=== PATIENT | female | born 1955 | race American Indian/Alaskan Native ===

== ENCOUNTER 2018-02-03 22:10 | Inpatient (IN) | payer MEDICAID, OTHER ==
[2018-02-03] MEDS ORDERED: NACL 0.9% 500 ML 500 ML IV ONE (22:17)
[2018-02-03] MEDS ORDERED: ZOFRAN IV ONE (22:17)
[2018-02-03] MEDS ORDERED: PEPCID IV ONE (22:17)
--- NOTE | 2018-02-03 22:23 | Emergency Department Report ---
ED Chest Pain HPI - General Stated Complaint: POSS STEMI Time Seen by Provider: 02/03/18 22:16 Source: patient, EMS Mode of arrival: Stretcher Limitations: No Limitations - History of Present Illness Initial Comments: 62-year-old female with a past medical history scleroderma,dvt, and CHF presents with complaints of chest pain, abdominal pain, nausea, vomiting, and diarrhea. Patient has had nausea, vomiting and diarrhea since yesterday which has continued today. Patient has mid abdominal pain just above the umbilicus that is constant and worse with palpation. Unable to characterize pain. She denies hematemesis, melena, hematochezia, or fever. No previous abdominal surgeries reported. Patient developed left-sided chest pain today 2:30 PM just prior to getting on a plane in route to [place]. She has been in [place] for the past 2 weeks. Her left-sided chest pain continue on return flight but progressively worsened. She is unable to characterize the pain states "It just hurts". Pain is reproducible with palpation. She denies shortness of breath. No complaints of calf tenderness. Positive cough without reported fever. No PMD , just relocated here from [place]. Patient received aspirin prior to arrival Patient denies a history of irregular heartbeat/afib with but take digoxin for "her heart". Patient states that she was started on ELiquis 2 years ago for DVT in her leg. She denies IVC filter placement - Related Data Previous Rx's Medication Instructions Recorded Last Taken Type Doxycycline [Vibramycin CAP] 100 mg PO BID #20 capsule 05/01/14 Unknown Rx Hydrocodone/Chlorphen P-Stirex 1 each PO Q12HR #30 cap.er.12h 05/01/14 Unknown Rx [Tussicaps 10 mg-8 mg Capsule] ALBUTEROL Inhaler [ProAir HFA 2 puff IH QID PRN #1 inhalation 06/01/15 Unknown Rx Inhaler] Acetaminophen/Codeine [Tylenol #3] 1 tab PO Q6H PRN #20 tab 06/01/15 Unknown Rx Cyclobenzaprine HCl [Flexeril 5 MG 5 mg PO Q8HR #20 tablet 06/01/15 Unknown Rx TAB] guaiFENesin [Robitussin] 10 ml PO Q4HR #1 bottle 06/01/15 Unknown Rx Allergies Allergy/AdvReac Type Severity Reaction Status Date / Time No Known Allergies Allergy Verified 06/01/15 17:48 Heart Score - HEART Score History: Slightly suspicious EKG: Non-specific Age: 45-65 Risk factors: 1-2 risk factors Troponin: 1-3x normal limit HEART Score: 4 ED Review of Systems ROS: Stated complaint: POSS STEMI Other details as noted in HPI Comment: All other systems reviewed and negative ED Past Medical Hx - Past Medical History Hx Asthma: Yes Additional medical history: dvt - Social History Smoking Status: Never Smoker Substance Use Type: None - Medications Home Medications: Home Medications Medication Instructions Recorded Confirmed Last Taken Type Doxycycline [Vibramycin CAP] 100 mg PO BID #20 capsule 05/01/14 Unknown Rx Hydrocodone/Chlorphen P-Stirex 1 each PO Q12HR #30 cap.er.12h 05/01/14 Unknown Rx [Tussicaps 10 mg-8 mg Capsule] ALBUTEROL Inhaler [ProAir HFA 2 puff IH QID PRN #1 inhalation 06/01/15 Unknown Rx Inhaler] Acetaminophen/Codeine [Tylenol #3] 1 tab PO Q6H PRN #20 tab 06/01/15 Unknown Rx Cyclobenzaprine HCl [Flexeril 5 MG 5 mg PO Q8HR #20 tablet 06/01/15 Unknown Rx TAB] guaiFENesin [Robitussin] 10 ml PO Q4HR #1 bottle 06/01/15 Unknown Rx ED Physical Exam - Other Other exam information: General: No limitations, patient is alert in no acute distress Head exam: Atraumatic, normocephalic Eyes exam: Normal appearance ENT: Moist mucous membrane, normal oropharynx Neck exam: Normal inspection, full range of motion, no meningismus nontender Respiratory exam: Clear to auscultation bilateral, no wheezes, rales, crackles Cardiovascular: Irregular rhythm, rate 98 on monitor/ekg. Reproducible left chest wall tenderness. Abdomen: Soft, nondistended, tenderness above umbilicus, with normal bowel sounds, no rebound, or guarding Extremity: Full range of motion normal inspection no deformity Back: Normal Inspection, full range of motion, no tenderness Neurologic: Alert, oriented x3, cranial nerves intact, no motor or sensory deficit Psychiatric: normal affect, normal mood Skin: thick skin secondary to scleroderma ED Course Vital Signs 02/03/18 02/03/18 02/03/18 22:08 22:16 22:30 Temperature Pulse Rate 115 H 103 H 103 H Respiratory 14 18 15 Rate Blood Pressure 107/68 Blood Pressure [Left] O2 Sat by Pulse 92 97 97 Oximetry 02/03/18 02/03/18 02/03/18 22:34 22:45 23:01 Temperature 98.6 F Pulse Rate 99 H 91 H 113 H Respiratory 19 13 Rate Blood Pressure 102/58 105/54 Blood Pressure [Left] O2 Sat by Pulse 92 Oximetry 02/03/18 02/03/18 02/03/18 23:07 23:11 23:15 Temperature 98.2 F Pulse Rate 89 102 H 104 H Respiratory 23 18 12 Rate Blood Pressure 105/54 100/45 Blood Pressure 105/54 [Left] O2 Sat by Pulse 99 98 Oximetry 02/03/18 02/03/18 02/04/18 23:30 23:45 00:00 Temperature Pulse Rate 102 H 98 H 96 H Respiratory 22 16 21 Rate Blood Pressure 106/71 116/59 99/58 Blood Pressure [Left] O2 Sat by Pulse 100 97 99 Oximetry 02/04/18 02/04/18 02/04/18 00:15 00:39 00:45 Temperature Pulse Rate 92 H Respiratory 13 Rate Blood Pressure 99/58 99/58 85/26 Blood Pressure [Left] O2 Sat by Pulse 91 97 Oximetry 02/04/18 02/04/18 02/04/18 01:01 01:15 01:31 Temperature Pulse Rate Respiratory Rate Blood Pressure 102/61 102/61 102/61 Blood Pressure [Left] O2 Sat by Pulse 94 91 89 Oximetry 02/04/18 02/04/18 02/04/18 01:45 02:01 02:15 Temperature Pulse Rate Respiratory Rate Blood Pressure 102/61 102/61 102/61 Blood Pressure [Left] O2 Sat by Pulse 91 89 85 Oximetry 02/04/18 02/04/18 02/04/18 02:31 02:45 03:00 Temperature Pulse Rate Respiratory Rate Blood Pressure 102/61 96/58 90/64 Blood Pressure [Left] O2 Sat by Pulse 86 94 95 Oximetry 02/04/18 03:15 Temperature Pulse Rate Respiratory Rate Blood Pressure 90/64 Blood Pressure [Left] O2 Sat by Pulse 99 Oximetry - Consultations Consultation #1: 02/04/18 04:23 case d/w Dr Campoverde/cards, will consult DENITA score - Denita Score Age > 65: (0) No Aspirin use within the Past 7 Days: (0) No 3 or more CAD Risk Factors: (1) Yes 2 or more Angina events in past 24 hrs: (1) Yes Known CAD with more than 50% Stenosis: (0) No Elevated Cardiac Markers: (1) Yes ST Deviation Greater than 0.5mm: (0) No DENITA Score: 3 ED Medical Decision Making - Lab Data Result diagrams: 02/03/18 22:22 02/03/18 22:22 Lab Results 02/03/18 02/03/18 02/03/18 Range/Units 22:22 22:22 22:22 WBC 9.6 (4.5-11.0) K/mm3 RBC 4.08 (3.65-5.03) M/mm3 Hgb 10.5 (10.1-14.3) gm/dl Hct 32.9 (30.3-42.9) % MCV 81 (79-97) fl MCH 26 L (28-32) pg MCHC 32 (30-34) % RDW 17.8 H (13.2-15.2) % Plt Count 287 (140-440) K/mm3 Lymph % (Auto) 18.2 (13.4-35.0) % [place] % (Auto) 11.4 H (0.0-7.3) % Eos % (Auto) 1.2 (0.0-4.3) % Baso % (Auto) 0.3 (0.0-1.8) % Lymph # 1.7 (1.2-5.4) K/mm3 [place] # 1.1 H (0.0-0.8) K/mm3 Eos # 0.1 (0.0-0.4) K/mm3 Baso # 0.0 (0.0-0.1) K/mm3 Seg Neutrophils % 68.9 (40.0-70.0) % Seg Neutrophils # 6.6 (1.8-7.7) K/mm3 PT 17.3 H (12.2-14.9) Sec. INR 1.34 H (0.87-1.13) APTT 38.8 H (24.2-36.6) Sec. D-Dimer 1205.05 H (0-234) ng/mlDDU Sodium 137 (137-145) mmol/L Potassium 3.1 L (3.6-5.0) mmol/L Chloride 90.8 L (98-107) mmol/L Carbon Dioxide 32 H (22-30) mmol/L Anion Gap 17 mmol/L BUN 8 (7-17) mg/dL Creatinine 0.4 L (0.7-1.2) mg/dL Estimated GFR > 60 ml/min BUN/Creatinine Ratio 20 % Glucose 111 H (65-100) mg/dL Calcium 9.1 (8.4-10.2) mg/dL Magnesium 1.20 L (1.7-2.3) mg/dL Total Bilirubin 0.60 (0.1-1.2) mg/dL AST 26 (5-40) units/L ALT 10 (7-56) units/L Alkaline Phosphatase 56 (35-129) units/L Total Creatine Kinase (30-135) units/L CK-MB (CK-2) (0.0-4.0) ng/mL CK-MB (CK-2) Rel Index (0-4) Troponin T (0.00-0.029) ng/mL NT-Pro-B Natriuret Pep 1420 H (0-900) pg/mL Total Protein 5.9 L (6.3-8.2) g/dL Albumin 3.8 L (3.9-5) g/dL Albumin/Globulin Ratio 1.8 % Triglycerides (2-149) mg/dL Cholesterol (50-199) mg/dL LDL Cholesterol Direct (50-130) mg/dL HDL Cholesterol (40-59) mg/dL Cholesterol/HDL Ratio % Lipase 64 H (13-60) units/L TSH (0.270-4.200) mlU/mL Free T4 (0.76-1.46) ng/dL Digoxin (0.9-2.0) ng/mL 02/03/18 02/03/18 02/03/18 Range/Units 22:22 22:22 22:38 WBC (4.5-11.0) K/mm3 RBC (3.65-5.03) M/mm3 Hgb (10.1-14.3) gm/dl Hct (30.3-42.9) % MCV (79-97) fl MCH (28-32) pg MCHC (30-34) % RDW (13.2-15.2) % Plt Count (140-440) K/mm3 Lymph % (Auto) (13.4-35.0) % [place] % (Auto) (0.0-7.3) % Eos % (Auto) (0.0-4.3) % Baso % (Auto) (0.0-1.8) % Lymph # (1.2-5.4) K/mm3 [place] # (0.0-0.8) K/mm3 Eos # (0.0-0.4) K/mm3 Baso # (0.0-0.1) K/mm3 Seg Neutrophils % (40.0-70.0) % Seg Neutrophils # (1.8-7.7) K/mm3 PT (12.2-14.9) Sec. INR (0.87-1.13) APTT (24.2-36.6) Sec. D-Dimer (0-234) ng/mlDDU Sodium (137-145) mmol/L Potassium (3.6-5.0) mmol/L Chloride (98-107) mmol/L Carbon Dioxide (22-30) mmol/L Anion Gap mmol/L BUN (7-17) mg/dL Creatinine (0.7-1.2) mg/dL Estimated GFR ml/min BUN/Creatinine Ratio % Glucose (65-100) mg/dL Calcium (8.4-10.2) mg/dL Magnesium (1.7-2.3) mg/dL Total Bilirubin (0.1-1.2) mg/dL AST (5-40) units/L ALT (7-56) units/L Alkaline Phosphatase (35-129) units/L Total Creatine Kinase 242 H (30-135) units/L CK-MB (CK-2) 4.5 H (0.0-4.0) ng/mL CK-MB (CK-2) Rel Index 1.8 (0-4) Troponin T 0.055 H (0.00-0.029) ng/mL NT-Pro-B Natriuret Pep (0-900) pg/mL Total Protein (6.3-8.2) g/dL Albumin (3.9-5) g/dL Albumin/Globulin Ratio % Triglycerides 99 (2-149) mg/dL Cholesterol 110 (50-199) mg/dL LDL Cholesterol Direct 56 (50-130) mg/dL HDL Cholesterol 44 (40-59) mg/dL Cholesterol/HDL Ratio 2.50 % Lipase (13-60) units/L TSH 3.950 (0.270-4.200) mlU/mL Free T4 1.28 (0.76-1.46) ng/dL Digoxin 0.5 L (0.9-2.0) ng/mL 02/04/18 Range/Units 01:00 WBC (4.5-11.0) K/mm3 RBC (3.65-5.03) M/mm3 Hgb (10.1-14.3) gm/dl Hct (30.3-42.9) % MCV (79-97) fl MCH (28-32) pg MCHC (30-34) % RDW (13.2-15.2) % Plt Count (140-440) K/mm3 Lymph % (Auto) (13.4-35.0) % [place] % (Auto) (0.0-7.3) % Eos % (Auto) (0.0-4.3) % Baso % (Auto) (0.0-1.8) % Lymph # (1.2-5.4) K/mm3 [place] # (0.0-0.8) K/mm3 Eos # (0.0-0.4) K/mm3 Baso # (0.0-0.1) K/mm3 Seg Neutrophils % (40.0-70.0) % Seg Neutrophils # (1.8-7.7) K/mm3 PT (12.2-14.9) Sec. INR (0.87-1.13) APTT (24.2-36.6) Sec. D-Dimer (0-234) ng/mlDDU Sodium (137-145) mmol/L Potassium (3.6-5.0) mmol/L Chloride (98-107) mmol/L Carbon Dioxide (22-30) mmol/L Anion Gap mmol/L BUN (7-17) mg/dL Creatinine (0.7-1.2) mg/dL Estimated GFR ml/min BUN/Creatinine Ratio % Glucose (65-100) mg/dL Calcium (8.4-10.2) mg/dL Magnesium (1.7-2.3) mg/dL Total Bilirubin (0.1-1.2) mg/dL AST (5-40) units/L ALT (7-56) units/L Alkaline Phosphatase (35-129) units/L Total Creatine Kinase (30-135) units/L CK-MB (CK-2) (0.0-4.0) ng/mL CK-MB (CK-2) Rel Index (0-4) Troponin T 0.066 H (0.00-0.029) ng/mL NT-Pro-B Natriuret Pep (0-900) pg/mL Total Protein (6.3-8.2) g/dL Albumin (3.9-5) g/dL Albumin/Globulin Ratio % Triglycerides (2-149) mg/dL Cholesterol (50-199) mg/dL LDL Cholesterol Direct (50-130) mg/dL HDL Cholesterol (40-59) mg/dL Cholesterol/HDL Ratio % Lipase (13-60) units/L TSH (0.270-4.200) mlU/mL Free T4 (0.76-1.46) ng/dL Digoxin (0.9-2.0) ng/mL - EKG Data -: EKG Interpreted by Me (afib, RBBB) EKG shows normal: axis (qrs 114), QRS complexes (161), ST-T waves (no stemi) Rate: normal (98) - EKG Data When compared to previous EKG there are: previous EKG unavailable - Radiology Data Radiology results: report reviewed read by radiology CXR: IMPRESSION: Moderate cardiomegaly with pulmonary venous congestion. Pericardial effusion cannot be excluded. ct angio chest (verbal from radiologist due to technical difficulties receiving report) no Pulmonary embolism significant cardiomegaly with medium pericardial effusion (16mm) Vascular congestion and atelectasis at the bases. No evidence for CT abdomen and pelvis IV contrast: IMPRESSION: There is mild dilatation of multiple loops of small bowel in a mild ileus is identified. Moderate gas and fecal debris throughout the colon consistent with constipation. Moderate diverticulosis of the distal colon. There is a calcified fibroid in the uterus. Significant cardiomegaly with mild pericardial effusion. Moderate atelectasis in bilateral lower lungs. 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 ED Disposition Clinical Impression: New onset a-fib, Chest pain, Elevated troponin, Scleroderma, Constipation, Cardiomegaly, Pericardial effusion, Ileus, Hypokalemia, Hypomagnesemia, Anticoagulant long-term use, Hx of deep venous thrombosis Disposition: OP ADMIT IP TO THIS HOSP Is pt being admited?: Yes Does the pt Need Aspirin: Yes Condition: Stable Instructions: Chest Pain (ED) Time of Disposition: 03:33 (Dr Cyr/hosp)
[2018-02-03 22:40] LABS: Basophils % (Auto) 0.3 % (0.0-1.8); Eosinophils # (Auto) 0.1 K/mm3 (0.0-0.4); Eosinophils % (Auto) 1.2 % (0.0-4.3); Hematocrit 32.9 % (30.3-42.9); Hemoglobin 10.5 gm/dl (10.1-14.3); Lymphocytes # (Auto) 1.7 K/mm3 (1.2-5.4); Lymphocytes % (Auto) 18.2 % (13.4-35.0); Mean Corpuscular HGB Conc 32 % (30-34); Mean Corpuscular Volume 81 fl (79-97); Monocytes # (Auto) 1.1 K/mm3 (0.0-0.8); Monocytes % (Auto) 11.4 % (0.0-7.3); Platelet Count 287 K/mm3 (140-440); Red Blood Count 4.08 M/mm3 (3.65-5.03); Red Cell Distribution Width 17.8 % (13.2-15.2)
[2018-02-03 22:47] LABS: Mean Corpuscular Hemoglobin 26 pg (28-32)
[2018-02-03 22:53] LABS: INR 1.34 (0.87-1.13)
[2018-02-03 22:54] LABS: Partial Thromboplastin Time 38.8 Sec. (24.2-36.6)
[2018-02-03 22:55] LABS: Alanine Aminotransferase 10 units/L (7-56); Albumin 3.8 g/dL (3.9-5); BUN/Creatinine Ratio 20; Blood Urea Nitrogen 8 mg/dL (7-17); Calcium 9.1 mg/dL (8.4-10.2); Hemolysis Index 24; Lipase 64 units/L (13-60)
[2018-02-03 23:00] LABS: Free T4 (Free Thyroxine) 1.28 ng/dL (0.76-1.46)
[2018-02-03 23:01] LABS: Creatine Kinase MB 4.5 ng/mL (0.0-4.0)
[2018-02-03] MEDS ORDERED: POTASSIUM CHLORIDE PO ONE (23:12)
[2018-02-03] MEDS ORDERED: MAGNESIUM SULFATE 2GM/50ML 2 GM/50 ML BAG IV ONE (23:12)
[2018-02-03 23:24] LABS: Chol/HDL Ratio 2.5 %
--- NOTE | 2018-02-03 23:36 | XRay Report ---
FINAL REPORT PROCEDURE: XR CHEST 1V AP TECHNIQUE: Chest radiograph anteroposterior view. CPT 25199 HISTORY: cp COMPARISON: No prior studies are available for comparison. FINDINGS: Heart: Moderate cardiomegaly is noted.. Mediastinum/Vessels: Pulmonary venous congestion is identified. Lungs/Pleural space: Normal. Bony thorax: No acute osseous abnormality. Life support devices: None. IMPRESSION: Moderate cardiomegaly with pulmonary venous congestion. Pericardial effusion cannot be excluded.
--- NOTE | 2018-02-04 01:44 | Cat Scan Report ---
FINAL REPORT PROCEDURE: CT ANGIO CHEST TECHNIQUE: Computerized tomographic angiography of the chest was performed after the IV injection of iodinated nonionic contrast including image processing. The image data was postprocessed using 2-dimensional multiplanar reformatted (MPR) and 3-dimensional (MIP and/or volume rendered) techniques. HISTORY: elevated ddimer, chest pain COMPARISON: No prior studies are available for comparison. FINDINGS: Heart and pericardium: Normal heart lies is significantly enlarged. There is moderate pericardial effusion.. Thoracic aorta: Normal. Pulmonary vasculature: There is no evidence of pulmonary arterial emboli. Lymph nodes: No enlarged thoracic lymph nodes. Lungs: There is vascular congestion with slight atelectasis bilateral lower lungs. No effusion or pneumothorax. The central airway is patent. Pleural space: No effusion, thickening, or pneumothorax. Musculoskeletal structures: No significant abnormality. Upper abdominal structures: No significant abnormality. IMPRESSION: There is no evidence of pulmonary arterial emboli. Vascular congestion with slight atelectasis bilateral lower lungs. No effusion. Cardiomegaly with moderate pericardial effusion.
--- NOTE | 2018-02-04 01:44 | Cat Scan Report ---
FINAL REPORT PROCEDURE: CT ABDOMEN PELVIS W CON TECHNIQUE: Computerized axial tomography of the abdomen and pelvis was performed after the IV injection of iodinated nonionic contrast. HISTORY: abd pain, n,v,d COMPARISON: No prior studies are available for comparison. FINDINGS: Visualized lower thorax: Significant cardiomegaly with mild pericardial effusion. Moderate atelectasis.. Liver: Normal size and attenuation. Spleen: Normal size and attenuation. Gallbladder and biliary system: Normal. Pancreas: Normal. Adrenals: Normal. Kidneys: Normal. GI tract: No obstruction, Mild dilatation of multiple loops of small bowel a mild ileus is identified. Moderate gas and fecal debris in the colon consistent with constipation.l. Lymph nodes and mesentery: Normal. Vasculature: Normal. Bladder: Normal. Reproductive organs: Calcified fibriod in the uterus. No adenexal masses. Peritoneum: No free fluid. Musculoskeletal structures: No significant abnormality. Other: None. IMPRESSION: There is mild dilatation of multiple loops of small bowel in a mild ileus is identified. Moderate gas and fecal debris throughout the colon consistent with constipation. Moderate diverticulosis of the distal colon. There is a calcified fibroid in the uterus. Significant cardiomegaly with mild pericardial effusion. Moderate atelectasis in bilateral lower lungs.
[2018-02-04] MEDS ORDERED: PROAIR IH PRN (04:08)
[2018-02-04] MEDS ORDERED: HEPARIN 10,000 UNITS/10 ML IV ONE (04:10)
[2018-02-04] MEDS ORDERED: BREVIBLOC DRIP 2.5GM/250ML 2.5 GM/250 ML BAG IV ONE (04:11)
[2018-02-04] MEDS ORDERED: MORPHINE IV PRN (04:13)
[2018-02-04] MEDS ORDERED: NITROSTAT SL PRN (04:15)
[2018-02-04] MEDS ORDERED: ZOFRAN IV PRN (04:16)
[2018-02-04] MEDS: NITRO-BID 2% TP SCH ×4 (04:40→17:27)
[2018-02-04] MEDS ORDERED: HEPARIN 10,000 UNITS/10 ML ONE (04:52)
[2018-02-04] MEDS ORDERED: HEPARIN/ 0.45% NACL-25,000 UNIT/500 ML 25,000 UNIT/500 ML BAG IV SCH (05:00)
[2018-02-04 05:02] LABS: Hematocrit 30.8 % (30.3-42.9); Hemoglobin 9.7 gm/dl (10.1-14.3)
[2018-02-04 05:10] LABS: INR 1.32 (0.87-1.13)
[2018-02-04 05:11] LABS: Partial Thromboplastin Time 42.2 Sec. (24.2-36.6)
[2018-02-04 05:17] LABS: Creatine Kinase MB 3.7 ng/mL (0.0-4.0)
--- NOTE | 2018-02-04 09:31 | Progress Note ---
Assessment and Plan Assessment and plan: --Non-ST elevation OK; Continue current cardiac medications, serial cardiac enzymes Echocardiogram, cardiology evaluation Aspirin, beta blockers , RAYMON inhibitor,Morphine, statin and Nitrate Patient is on heparin drip --Elevated D dimers; CTA negative for PE CTA negative for PE --Congestive heart failure; unknown ejection fraction Check echo, low sodium diet, fluid restriction Anti-failure medications as needed --History of A. fib; rate controlled Continue beta blockers, continue heparin drip received Eliquis in the past --DVT prophylaxis; on heparin drip Cardiology evaluation and recommendations Closely monitor the patient and adjust the management as needed History Interval history: Patient seen and examined medical records reviewed Admitted with acute chest pain and non-ST elevation OK On heparin drip Patient feels slightly better still has intermittent chest pain Alert awake oriented 3 not in acute distress Vital signs reviewed Hospitalist Physical - Constitutional Vitals: Temp Pulse Resp BP Pulse Ox 98.7 F 101 H 18 107/59 89 02/04/18 08:25 02/04/18 07:41 02/04/18 08:25 02/04/18 08:25 02/04/18 07:41 General appearance: Present: no acute distress, well-nourished - EENT Eyes: Present: PERRL, EOM intact - Neck Neck: Present: supple, normal ROM - Respiratory Respiratory effort: normal Respiratory: bilateral: diminished, negative: rales, rhonchi, wheezing - Cardiovascular Rhythm: irregularly irregular Heart Sounds: Present: S1 & S2 - Extremities Extremities: no ischemia, No edema - Abdominal General gastrointestinal: soft, non-tender, non-distended, normal bowel sounds - Integumentary Integumentary: Present: clear, warm - Psychiatric Psychiatric: appropriate mood/affect, cooperative - Neurologic Neurologic: CNII-XII intact, moves all extremities Results - Labs CBC & Chem 7: 02/04/18 04:35 02/03/18 22:22 Labs: Laboratory Last Values WBC 9.6 K/mm3 (4.5-11.0) 02/03/18 22:22 RBC 4.08 M/mm3 (3.65-5.03) 02/03/18 22:22 Hgb 9.7 gm/dl (10.1-14.3) L 02/04/18 04:35 Hct 30.8 % (30.3-42.9) 02/04/18 04:35 MCV 81 fl (79-97) 02/03/18 22:22 MCH 26 pg (28-32) L 02/03/18 22:22 MCHC 32 % (30-34) 02/03/18 22:22 RDW 17.8 % (13.2-15.2) H 02/03/18 22:22 Plt Count 256 K/mm3 (140-440) 02/04/18 04:35 Lymph % (Auto) 18.2 % (13.4-35.0) 02/03/18 22:22 [place] % (Auto) 11.4 % (0.0-7.3) H 02/03/18 22:22 Eos % (Auto) 1.2 % (0.0-4.3) 02/03/18 22:22 Baso % (Auto) 0.3 % (0.0-1.8) 02/03/18 22:22 Lymph # 1.7 K/mm3 (1.2-5.4) 02/03/18 22:22 [place] # 1.1 K/mm3 (0.0-0.8) H 02/03/18 22:22 Eos # 0.1 K/mm3 (0.0-0.4) 02/03/18 22:22 Baso # 0.0 K/mm3 (0.0-0.1) 02/03/18 22:22 Seg Neutrophils % 68.9 % (40.0-70.0) 02/03/18 22:22 Seg Neutrophils # 6.6 K/mm3 (1.8-7.7) 02/03/18 22:22 PT 17.1 Sec. (12.2-14.9) H 02/04/18 04:35 INR 1.32 (0.87-1.13) H 02/04/18 04:35 APTT 42.2 Sec. (24.2-36.6) H 02/04/18 04:35 D-Dimer 1205.05 ng/mlDDU (0-234) H 02/03/18 22:22 Sodium 137 mmol/L (137-145) 02/03/18 22:22 Potassium 3.1 mmol/L (3.6-5.0) L 02/03/18 22:22 Chloride 90.8 mmol/L (98-107) L 02/03/18 22:22 Carbon Dioxide 32 mmol/L (22-30) H 02/03/18 22:22 Anion Gap 17 mmol/L 02/03/18 22:22 BUN 8 mg/dL (7-17) 02/03/18 22:22 Creatinine 0.4 mg/dL (0.7-1.2) L 02/03/18 22:22 Estimated GFR > 60 ml/min 02/03/18 22:22 BUN/Creatinine Ratio 20 % 02/03/18 22:22 Glucose 111 mg/dL (65-100) H 02/03/18 22:22 Calcium 9.1 mg/dL (8.4-10.2) 02/03/18 22:22 Magnesium 1.20 mg/dL (1.7-2.3) L 02/03/18 22:22 Total Bilirubin 0.60 mg/dL (0.1-1.2) 02/03/18 22:22 AST 26 units/L (5-40) 02/03/18 22:22 ALT 10 units/L (7-56) 02/03/18 22:22 Alkaline Phosphatase 56 units/L (35-129) 02/03/18 22:22 Total Creatine Kinase 176 units/L (30-135) H 02/04/18 04:35 CK-MB (CK-2) 3.7 ng/mL (0.0-4.0) 02/04/18 04:35 CK-MB (CK-2) Rel Index 2.1 (0-4) 02/04/18 04:35 Troponin T 0.062 ng/mL (0.00-0.029) H 02/04/18 04:35 NT-Pro-B Natriuret Pep 1420 pg/mL (0-900) H 02/03/18 22:22 Total Protein 5.9 g/dL (6.3-8.2) L 02/03/18 22:22 Albumin 3.8 g/dL (3.9-5) L 02/03/18 22:22 Albumin/Globulin Ratio 1.8 % 02/03/18 22:22 Triglycerides 99 mg/dL (2-149) 02/03/18 22:22 Cholesterol 110 mg/dL (50-199) 02/03/18 22:22 LDL Cholesterol Direct 56 mg/dL (50-130) 02/03/18 22:22 HDL Cholesterol 44 mg/dL (40-59) 02/03/18 22:22 Cholesterol/HDL Ratio 2.50 % 02/03/18 22:22 Lipase 64 units/L (13-60) H 02/03/18 22:22 TSH 3.950 mlU/mL (0.270-4.200) 02/03/18 22:22 Free T4 1.28 ng/dL (0.76-1.46) 02/03/18 22:22 Digoxin 0.5 ng/mL (0.9-2.0) L 02/03/18 22:38
[2018-02-04] MEDS: VIBRAMYCIN PO SCH ×2 (10:34→21:45)
[2018-02-04] MEDS: ASPIRIN PO SCH (10:34)
[2018-02-04] MEDS: LOPRESSOR PO SCH ×2 (10:36→21:45)
[2018-02-04] MEDS: TYLENOL PO PRN (10:42)
--- NOTE | 2018-02-04 11:29 | Consultation ---
History of Present Illness Consult reason: abnormal cardiac enzymes, atrial fibrillation History of present illness: 62 year old -Thai female presenting with nausea vomiting and diarrhea left-sided chest pain. She denies any shortness of breath. Patient admitted for further evaluation. Past History Past Medical History: atrial fib, COPD, other (scleroderma) Social history: smoking Family history: no significant family history Medications and Allergies Allergies Allergy/AdvReac Type Severity Reaction Status Date / Time No Known Allergies Allergy Verified 06/01/15 17:48 Home Medications Medication Instructions Recorded Confirmed Last Taken Type Doxycycline [Vibramycin CAP] 100 mg PO BID #20 capsule 05/01/14 Unknown Rx Hydrocodone/Chlorphen P-Stirex 1 each PO Q12HR #30 cap.er.12h 05/01/14 Unknown Rx [Tussicaps 10 mg-8 mg Capsule] ALBUTEROL Inhaler [ProAir HFA 2 puff IH QID PRN #1 inhalation 06/01/15 Unknown Rx Inhaler] Acetaminophen/Codeine [Tylenol #3] 1 tab PO Q6H PRN #20 tab 06/01/15 Unknown Rx Cyclobenzaprine HCl [Flexeril 5 MG 5 mg PO Q8HR #20 tablet 06/01/15 Unknown Rx TAB] guaiFENesin [Robitussin] 10 ml PO Q4HR #1 bottle 06/01/15 Unknown Rx Active Meds: Active Medications Acetaminophen (Tylenol) 650 mg PO Q4H PRN PRN Reason: For Pain/Fever/Headache Last Admin: 02/04/18 10:42 Dose: 650 mg Albuterol (Proventil) 2.5 mg IH Q4HRT PRN PRN Reason: Shortness Of Breath Aspirin (Aspirin) 325 mg PO QDAY [facility] Last Admin: 02/04/18 10:34 Dose: 325 mg Atorvastatin Calcium (Lipitor) 40 mg PO QHS [facility] Doxycycline Hyclate (Vibramycin) 100 mg PO BID [facility] Last Admin: 02/04/18 10:34 Dose: 100 mg Heparin Sodium/Sodium Chloride (Heparin/ 0.45% Nacl-25,000 Unit/500 Ml) 25,000 unit in 500 mls @ 20 mls/hr IV TITRATE [facility]; Protocol Last Admin: 02/04/18 05:04 Dose: 1,000 units/hr, 20 mls/hr Lisinopril (Zestril) 2.5 mg PO QDAY [facility] Metoprolol Tartrate (Lopressor) 12.5 mg PO BID [facility] Last Admin: 02/04/18 10:36 Dose: Not Given Morphine Sulfate (Morphine) 2 mg IV Q3H PRN PRN Reason: Pain, Moderate (4-6) Nitroglycerin (Nitro-Bid 2%) 0.5 inch TP QIDNTG [facility]; Protocol Last Admin: 02/04/18 10:35 Dose: Not Given Nitroglycerin (Nitrostat) 0.4 mg SL .Q5MIN PRN PRN Reason: Chest Pain Ondansetron HCl (Zofran) 4 mg IV Q6H PRN PRN Reason: Nausea And Vomiting Review of Systems Constitutional: weight loss, anorexia, fatigue, weakness, no weight gain Cardiovascular: chest pain, orthopnea, shortness of breath, dyspnea on exertion Respiratory: no cough, no cough with sputum, no hemoptysis Gastrointestinal: no abdominal pain, no nausea, no vomiting, no diarrhea, no melena, no hematochezia Genitourinary Female: no dyspareunia, no flank pain, no dysuria, no urinary frequency Rectal: no pain, no incontinence Musculoskeletal: no neck stiffness Integumentary: no deferred, no rash, no pruritis, no redness Endocrine: no cold intolerance, no heat intolerance, no polyphagia, no excessive thirst, no weight change Hematologic/Lymphatic: no easy bruising, no easy bleeding Allergic/Immunologic: no urticaria Physical Examination Vital Signs Pulse Resp Pulse Ox 115 H 14 92 02/03/18 22:08 02/03/18 22:08 02/03/18 22:08 General appearance: no acute distress HEENT: Positive: PERRL, Normocephaly, Mucus Membranes Moist Neck: Positive: neck supple, trachea midline. Negative: JVD/HJR Cardiac: Positive: Regular Rate, S1/S2, Systolic Murmur, PMI, Dilated, Laterally Displaced Lungs: Positive: clear to auscultation, No Wheeze, Rales, Rhonchi Neuro: Positive: Grossly Intact Abdomen: Positive: Unremarkable, Soft, Active Bowel Sounds Extremities: Absent: edema Results 02/04/18 04:35 02/03/18 22:22 Cardiac Enzymes 02/03/18 02/03/18 02/04/18 Range/Units 22:22 22:22 04:35 AST 26 (5-40) units/L CK-MB (CK-2) 4.5 H 3.7 (0.0-4.0) ng/mL Coagulation 02/03/18 02/04/18 Range/Units 22:22 04:35 PT 17.3 H 17.1 H (12.2-14.9) Sec. INR 1.34 H 1.32 H (0.87-1.13) APTT 38.8 H 42.2 H (24.2-36.6) Sec. Lipids 02/03/18 Range/Units 22:22 Triglycerides 99 (2-149) mg/dL Cholesterol 110 (50-199) mg/dL HDL Cholesterol 44 (40-59) mg/dL Cholesterol/HDL Ratio 2.50 % CBC 02/03/18 02/04/18 Range/Units 22:22 04:35 WBC 9.6 (4.5-11.0) K/mm3 RBC 4.08 (3.65-5.03) M/mm3 Hgb 10.5 9.7 L (10.1-14.3) gm/dl Hct 32.9 30.8 (30.3-42.9) % Plt Count 287 256 (140-440) K/mm3 Lymph # 1.7 (1.2-5.4) K/mm3 [place] # 1.1 H (0.0-0.8) K/mm3 Eos # 0.1 (0.0-0.4) K/mm3 Baso # 0.0 (0.0-0.1) K/mm3 Comprehensive Metabolic Panel 02/03/18 Range/Units 22:22 Sodium 137 (137-145) mmol/L Potassium 3.1 L (3.6-5.0) mmol/L Chloride 90.8 L (98-107) mmol/L Carbon Dioxide 32 H (22-30) mmol/L BUN 8 (7-17) mg/dL Creatinine 0.4 L (0.7-1.2) mg/dL Glucose 111 H (65-100) mg/dL Calcium 9.1 (8.4-10.2) mg/dL AST 26 (5-40) units/L ALT 10 (7-56) units/L Alkaline Phosphatase 56 (35-129) units/L Total Protein 5.9 L (6.3-8.2) g/dL Albumin 3.8 L (3.9-5) g/dL EKG interpretations - Telemetry EKG Rhythm: Sinus Rhythm Assessment and Plan 1. Chronic atrial fibrillation with a controlled ventricular response 2. Dilated cardiomyopathy 3. Elevated serum troponin levels concentrated time cough pattern not consistent with an acute coronary syndrome. 4. Scleroderma Plan. Patient is currently stable obtain an echocardiogram to assess global function. Scan to rule out underlying ischemic coronary artery disease
[2018-02-04 11:40] LABS: BUN/Creatinine Ratio 20; Blood Urea Nitrogen 8 mg/dL (7-17); Calcium 8.7 mg/dL (8.4-10.2); Hemolysis Index 6
[2018-02-04] MEDS ORDERED: K-DUR PO ONE (12:02)
[2018-02-04] MEDS: PROVENTIL IH PRN (12:42)
[2018-02-04] MEDS: KCL 10MEQ/100ML 10 MEQ/100 ML BAG IV SCH ×3 (15:47→21:45)
--- NOTE | 2018-02-04 19:14 | History and Physical Report ---
CHIEF COMPLAINT: Chest pain. Other complaint include abdominal pain, nausea, and vomiting as well as diarrhea. HISTORY OF PRESENT ILLNESS: The patient is a 62-year-old female who said she has been having nausea, vomiting, and diarrhea going on for a day prior to presentation and continued till presentation. The patient also states she had chest and mid abdominal pain above the umbilical area; the mid abdominal pain is worse with palpations. There is also history of palpitations. The patient denied history of fever or chills and denied history of cough. She stated that the chest pain is in the precordial area. The pain chest started in the afternoon on 02/03/2018 prior to the patient getting into airplane to come to [place]. The patient stated that the left-sided chest pain continued progressively and got worse. When asked to characterize the pain, the patient states it just hurts. However, the pain is reproducible with palpation. There is no history of shortness of breath, but there is history of cough and no history of fever. PAST MEDICAL HISTORY: Pertinent for DVT. Also, the patient has past history of asthma and scleredema. Also, there is history of congestive heart failure. FAMILY HISTORY: Family history is noncontributory. SOCIAL HISTORY: The patient lives with family. Does not smoke, does not drink alcohol, does not use illicit drug. MEDICATIONS: The patient is on Vibramycin 100 mg by mouth twice daily, TussiCaps 1 by mouth every 12 hours, albuterol inhaler 2 puff inhalation 4 times a day. The patient is also on Tylenol No. 3 one by mouth every 6 hours, cyclobenzaprine, Flexeril 5 mg by mouth every 8 hours. The patient is also on Robitussin 10 mL every 4 hour. ALLERGIES: There are no known drug allergies. REVIEW OF SYSTEMS: CONSTITUTIONAL: There is no fever, no chills, no diaphoresis. HEENT: There is no headache or sore throat. CARDIOVASCULAR SYSTEM: Chest pain is present. No orthopnea. RESPIRATORY SYSTEM: There is no shortness of breath, but there is cough. GASTROINTESTINAL SYSTEM: There is nausea. There is vomiting. There is abdominal pain and diarrhea. NEUROLOGICAL SYSTEM: There is no numbness, no dizziness, no altered mental status. MUSCULOSKELETAL SYSTEM: There is no joint pain or swelling. DERMATOLOGICAL SYSTEM: There is no skin rash or itching. GENITOURINARY SYSTEM: There is no dysuria, hematuria, or flank pain. Rest of system review is normal. PHYSICAL EXAMINATION: GENERAL: At the time of exam, the patient was found to be alert, oriented x 3, not in acute distress. VITAL SIGNS: At the initial time of presentation shows normal temperature with pulse of 115, respirations 14, blood pressure 107/68, O2 sat of 93% on room air. HEENT: Showed pupils appear to be equal, round, and reactive to light and accommodating. Extraocular muscles are intact. NECK: Supple with no JVD or carotid bruit. CARDIOVASCULAR SYSTEM: Show first and second heart sounds to be heard with irregularly irregular rhythm. No murmur. RESPIRATORY SYSTEM: Show good air entry on both sides of the lung with no abnormal breath sounds. GASTROINTESTINAL SYSTEM: Show abdomen to be full, soft, nontender with no organomegaly or rigidity. NEUROLOGICAL: Shows no focal deficits. MUSCULOSKELETAL: No joint swelling or tenderness. DERMATOLOGICAL SYSTEM: Show no skin rash. GENITOURINARY: Showing no costovertebral angle tenderness. PERTINENT LABORATORY DATA AND IMAGING STUDIES: The patient has CBC done with normal white count, normal hemoglobin, and normal hematocrit with normal MCV and unremarkable CBC differential. The patient's coagulation studies show a high PT of 17.3, slightly elevated INR of 1.34 and high D-dimer of 1205. The patient's chemistry shows normal sodium, low potassium of 3.1, low chloride of 90.8 with a high CO2 of 32 and normal BUN and unremarkable renal function test. The patient's magnesium level is low with a value of 1.2. The patient's cardiac enzyme shows elevated total CK of 242 with elevated CK-MB of 4.5 and normal CK percentage index of 1.8. The troponin level is high with a value of 0.055 first one, the second one is getting a little higher at 0.066 and finally the third troponin level has come back with a value of 0.062. The patient's brain natriuretic peptidoid level is high with a value of 1420. The patient's digoxin level is low with a value of 0.5. IMAGING STUDIES: The patient had angiogram of the chest done shows cardiomegaly with moderate pericardial effusion. Also, the CT angio of the chest shows no evidence of pulmonary embolism, but there is vascular congestion with slight atelectasis in the bilateral lower lung area. There is no effusion in the lung. The patient also had a CT of the abdomen and pelvis done. The results shows that there is mild dilatation of multiple loops of small bowels and there is also ileus and there is moderate gas and fecal debris throughout the colon consistent with constipation. There is finding of moderate diverticulosis of the distal colon. There is calcified fibroid also in the uterus. Also, the CT abdomen of abdomen shows significant cardiomegaly with mild pericardial effusion and moderate atelectasis in the bilateral lower lobes. The patient had chest done that shows moderate cardiomegaly with pulmonary venous congestion and pericardial effusion cannot be excluded according to the radiologist. The patient's lab results I have already stated. DIAGNOSES: 1. New onset atrial fibrillation. 2. Pericardial effusion. 3. Non-ST elevation myocardial infarction. 4. Hypokalemia. 5. Low magnesium. 6. Ileus. PLAN: The patient will be admitted to medical floor on telemetry. We will have serial cardiac enzymes and we will have Cardiology consult with Dr. Norris for management of atrial fibrillation with RVR and NSTEMI. The patient will be on IV heparin per Cardiology protocol for atrial fibrillation and will be on nitro paste half inch to anterior chest wall q.i.d. The patient will be also on sublingual nitroglycerin 0.4 mg q. 5 minutes for grade 2 chest pain. The patient will be on Zofran 4 mg IV every 6 hours as needed for nausea and vomiting and will be on morphine 2 mg IV every 3 hours as needed for chest pain. The patient will receive 2 grams of magnesium IV in 50 mL of normal saline and will be esmolol drip for control of atrial fibrillation. The patient will also be on albuterol nebulizer every 4 hours as needed for shortness of breath. Further management of the patient's condition will be dependent on cardiology consults. ADDENDUM: The patient's home medication has been reconciled and applied accordingly. JOB# [id number] [facility]/GAEL SMITH
[2018-02-05] MEDS: KCL 10MEQ/100ML 10 MEQ/100 ML BAG IV SCH ×2 (01:08)
[2018-02-05 06:47] LABS: BUN/Creatinine Ratio 25; Blood Urea Nitrogen 10 mg/dL (7-17); Hemolysis Index 5
[2018-02-05] MEDS: NITRO-BID 2% TP SCH ×4 (06:58→17:19)
[2018-02-05] MEDS: VIBRAMYCIN PO SCH ×2 (10:00→21:51)
[2018-02-05] MEDS: ZESTRIL PO SCH (10:00)
[2018-02-05] MEDS: ASPIRIN PO SCH (10:58)
[2018-02-05] MEDS: LOPRESSOR PO SCH ×2 (10:59→21:52)
[2018-02-05] MEDS ORDERED: MAGNESIUM SULFATE 3 GM in NACL 0.9% 100 ML IV ONE (11:30)
[2018-02-05] MEDS ORDERED: LEXISCAN IV ONE ×2 (11:32→11:38)
--- NOTE | 2018-02-05 16:18 | Progress Note ---
Assessment and Plan Assessment and plan: --Severe hypomagnesemia, magnesium of 1.4 Replenishment protocol, recheck magnesium levels Supportive care --Non-ST elevation [place]; Patient had stress test which is negative for reversible ischemia DC heparin drip, continue current cardiac medications --Elevated D dimers; CTA negative for PE CTA negative for PE --Congestive heart failure; unknown ejection fraction Check echo, low sodium diet, fluid restriction Anti-failure medications as needed --History of A. fib; rate controlled Continue beta blockers, d/c heparin drip Add Eliquis 5 mg by mouth twice a day --DVT prophylaxis; on eliquis Recheck magnesium levels Resume all home medications Possible discharge home tomorrow if stable History Interval history: Patient seen and examined medical records reviewed Underwent stress test today, negative for reversible ischemia Patient also had severe hypomagnesemia Feels slightly better Continues to have intermittent chest pain Significantly improved from yesterday Vital signs reviewed Hospitalist Physical - Constitutional Vitals: Temp Pulse Resp BP Pulse Ox 98.6 F 109 H 18 97/61 94 02/05/18 16:06 02/05/18 08:00 02/05/18 16:06 02/05/18 16:06 02/05/18 08:00 General appearance: Present: no acute distress, well-nourished - EENT Eyes: Present: PERRL, EOM intact - Neck Neck: Present: supple, enlarged thyroid - Respiratory Respiratory effort: normal Respiratory: bilateral: diminished, negative: rales, rhonchi, wheezing - Cardiovascular Rhythm: regular Heart Sounds: Present: S1 & S2 - Extremities Extremities: no ischemia, No edema Peripheral Pulses: within normal limits - Abdominal General gastrointestinal: soft, non-tender, non-distended, normal bowel sounds - Integumentary Integumentary: Present: clear, warm - Psychiatric Psychiatric: appropriate mood/affect, cooperative - Neurologic Neurologic: CNII-XII intact, moves all extremities Results - Labs CBC & Chem 7: 02/04/18 04:35 02/05/18 05:51 Labs: Laboratory Last Values WBC 9.6 K/mm3 (4.5-11.0) 02/03/18 22:22 RBC 4.08 M/mm3 (3.65-5.03) 02/03/18 22:22 Hgb 9.7 gm/dl (10.1-14.3) L 02/04/18 04:35 Hct 30.8 % (30.3-42.9) 02/04/18 04:35 MCV 81 fl (79-97) 02/03/18 22:22 MCH 26 pg (28-32) L 02/03/18 22:22 MCHC 32 % (30-34) 02/03/18 22:22 RDW 17.8 % (13.2-15.2) H 02/03/18 22:22 Plt Count 256 K/mm3 (140-440) 02/04/18 04:35 Lymph % (Auto) 18.2 % (13.4-35.0) 02/03/18 22:22 [place] % (Auto) 11.4 % (0.0-7.3) H 02/03/18 22:22 Eos % (Auto) 1.2 % (0.0-4.3) 02/03/18 22:22 Baso % (Auto) 0.3 % (0.0-1.8) 02/03/18 22:22 Lymph # 1.7 K/mm3 (1.2-5.4) 02/03/18 22:22 [place] # 1.1 K/mm3 (0.0-0.8) H 02/03/18 22:22 Eos # 0.1 K/mm3 (0.0-0.4) 02/03/18 22:22 Baso # 0.0 K/mm3 (0.0-0.1) 02/03/18 22:22 Seg Neutrophils % 68.9 % (40.0-70.0) 02/03/18 22:22 Seg Neutrophils # 6.6 K/mm3 (1.8-7.7) 02/03/18 22:22 PT 17.1 Sec. (12.2-14.9) H 02/04/18 04:35 INR 1.32 (0.87-1.13) H 02/04/18 04:35 APTT 42.2 Sec. (24.2-36.6) H 02/04/18 04:35 D-Dimer 1205.05 ng/mlDDU (0-234) H 02/03/18 22:22 Heparin Anti-Xa Level 0.77 U.I./ml (0.3-0.7) H 02/05/18 12:47 Sodium 136 mmol/L (137-145) L 02/05/18 05:51 Potassium 3.6 mmol/L (3.6-5.0) D 02/05/18 05:51 Chloride 92.8 mmol/L (98-107) L 02/05/18 05:51 Carbon Dioxide 29 mmol/L (22-30) 02/05/18 05:51 Anion Gap 18 mmol/L 02/05/18 05:51 BUN 10 mg/dL (7-17) 02/05/18 05:51 Creatinine 0.4 mg/dL (0.7-1.2) L 02/05/18 05:51 Estimated GFR > 60 ml/min 02/05/18 05:51 BUN/Creatinine Ratio 25 % 02/05/18 05:51 Glucose 99 mg/dL (65-100) 02/05/18 05:51 Calcium 9.0 mg/dL (8.4-10.2) 02/05/18 05:51 Magnesium 1.40 mg/dL (1.7-2.3) L 02/05/18 05:51 Total Bilirubin 0.60 mg/dL (0.1-1.2) 02/03/18 22:22 AST 26 units/L (5-40) 02/03/18 22:22 ALT 10 units/L (7-56) 02/03/18 22:22 Alkaline Phosphatase 56 units/L (35-129) 02/03/18 22:22 Total Creatine Kinase 176 units/L (30-135) H 02/04/18 04:35 CK-MB (CK-2) 3.7 ng/mL (0.0-4.0) 02/04/18 04:35 CK-MB (CK-2) Rel Index 2.1 (0-4) 02/04/18 04:35 Troponin T 0.062 ng/mL (0.00-0.029) H 02/04/18 04:35 NT-Pro-B Natriuret Pep 1420 pg/mL (0-900) H 02/03/18 22:22 Total Protein 5.9 g/dL (6.3-8.2) L 02/03/18 22:22 Albumin 3.8 g/dL (3.9-5) L 02/03/18 22:22 Albumin/Globulin Ratio 1.8 % 02/03/18 22:22 Triglycerides 99 mg/dL (2-149) 02/03/18 22:22 Cholesterol 110 mg/dL (50-199) 02/03/18 22:22 LDL Cholesterol Direct 56 mg/dL (50-130) 02/03/18 22:22 HDL Cholesterol 44 mg/dL (40-59) 02/03/18 22:22 Cholesterol/HDL Ratio 2.50 % 02/03/18 22:22 Lipase 64 units/L (13-60) H 02/03/18 22:22 TSH 3.950 mlU/mL (0.270-4.200) 02/03/18 22:22 Free T4 1.28 ng/dL (0.76-1.46) 02/03/18 22:22 Digoxin 0.5 ng/mL (0.9-2.0) L 02/03/18 22:38
[2018-02-05] MEDS: TYLENOL PO PRN (18:13)
--- NOTE | 2018-02-05 19:49 | Progress Note ---
Assessment and Plan - Patient Problems (1) Cor pulmonale Current Visit: Yes Status: Acute Plan to address problem: The patient has a dilated right heart, moderate tricuspid regurgitation, at least moderate pulmonary hypertension and flattening of the interventricular septum consistent with right heart pressure volume overload and cor pulmonale. Medical therapy redirected at pulmonary hypertension and cor pulmonale, pulmonary service consultation is recommended. (2) Chronic atrial flutter Current Visit: Yes Status: Acute Plan to address problem: Patient has good rate control of the atrial flutter, continue medical therapy for rate control and chronic oral anticoagulation. Subjective Date of service: 02/05/18 Interval history: The patient is a 62-year-old woman who moved to the [facility] from [facility] 2 years ago. Her cardiac history is notable for chronic atrial fibrillation and flutter, for which she is on oral anticoagulation with Eliquis. She is uncertain if there were significant attempts in the past to reestablish sinus rhythm with a cardioversion procedure. In addition, she has chronic pulmonary hypertension which was managed at hypertension clinic at [facility] in [place]. With regards to cardiac ischemic workup, cardiac catheterization in June 2016, a year and a half ago reported angiographically normal coronary arteries. There is no record of left ventricular systolic dysfunction or systolic heart failure. She was admitted at this time with shortness of breath, found to have rapid atrial fibrillation. With medical therapy, today she has atrial flutter with a variable ventricular rate, average heart rate 90-100. A Lexiscan myocardial perfusion stress test was ordered today, the results are normal with no demonstrable ischemia. Echocardiography demonstrates well-preserved left ventricular systolic function , ejection fraction 55-60%. Most significant finding on the echocardiogram is a severely dilated right heart, moderate tricuspid regurgitation, and pulmonary artery systolic pressure elevated at 50. There is flattening of the interventricular septum consistent with right heart volume pressure overload. Findings are consistent with cor pulmonale. Objective Vital Signs Temp Pulse Resp BP BP Pulse Ox 02/05/18 16:06 98.6 F 18 97/61 02/05/18 08:00 98.1 F 109 H 18 103/58 94 02/05/18 07:31 98.0 F 105 H 18 103/58 88 02/05/18 03:50 98.3 F 112 H 20 94/59 87 02/05/18 00:15 98.2 F 109 H 20 94/57 85 02/04/18 22:00 108 H 02/04/18 19:59 98.6 F 115 H 20 101/59 91 - Physical Examination General: No Apparent Distress HEENT: Positive: PERRL, Normocephaly, Mucus Membranes Moist Neck: Positive: neck supple, trachea midline. Negative: JVD/HJR Cardiac: Positive: Reg Rate and Rhythm Lungs: Positive: Decreased Breath Sounds Neuro: Positive: Grossly Intact Abdomen: Positive: Unremarkable, Soft, Active Bowel Sounds Skin: Positive: Clear Extremities: Absent: edema - Labs and Meds Comprehensive Metabolic Panel 02/05/18 Range/Units 05:51 Sodium 136 L (137-145) mmol/L Potassium 3.6 D (3.6-5.0) mmol/L Chloride 92.8 L (98-107) mmol/L Carbon Dioxide 29 (22-30) mmol/L BUN 10 (7-17) mg/dL Creatinine 0.4 L (0.7-1.2) mg/dL Glucose 99 (65-100) mg/dL Calcium 9.0 (8.4-10.2) mg/dL
[2018-02-05] MEDS: ELIQUIS PO SCH (21:51)
[2018-02-05] MEDS ORDERED: AMBIEN PO PRN (22:56)
[2018-02-06] MEDS: NITRO-BID 2% TP SCH ×2 (06:45→13:14)
[2018-02-06 07:45] LABS: Hematocrit 28.4 % (30.3-42.9); Hemoglobin 9.4 gm/dl (10.1-14.3)
[2018-02-06] MEDS: PROVENTIL IH PRN (08:35)
--- NOTE | 2018-02-06 10:19 | Progress Note ---
Assessment and Plan Chest pain, atypical Normal myocardial perfusion stress test this admission. Cardiac catheterization at [facility], June 2016 reports angiographically normal coronary arteries. Cor pulmonale Persistent Atrial flutter on oral anticoagulation with Eliquis. on digoxin and metoprolol for rate control. Echocardiography demonstrates well-preserved left ventricular systolic function , ejection fraction 55-60%. Most significant finding on the echocardiogram is a severely dilated right heart, moderate tricuspid regurgitation, and pulmonary artery systolic pressure elevated at 50. There is flattening of the interventricular septum consistent with right heart volume pressure overload. Findings are consistent with cor pulmonale. Continue medical therapy for chronic atrial flutter. Stable cardiac [place]. Once discharged, patient advised to f/u with [facility] as scheduled February 16. Subjective Date of service: 02/06/18 Interval history: Patient denies chest pain and shortness of breath. Objective Vital Signs Temp Pulse Pulse Pulse Resp Resp Resp 02/06/18 08:35 111 H 108 H 18 20 02/06/18 05:01 98.2 F 110 H 18 02/06/18 01:10 97.6 F 110 H 20 02/05/18 21:19 112 H 02/05/18 20:06 98.9 F 106 H 20 02/05/18 16:06 98.6 F 18 BP BP Pulse Ox 02/06/18 08:35 02/06/18 05:01 103/65 95 02/06/18 01:10 103/55 91 02/05/18 21:19 02/05/18 20:06 102/60 90 02/05/18 16:06 97/61 - Physical Examination General: No Apparent Distress HEENT: Positive: PERRL Neck: Positive: trachea midline Cardiac: Positive: Reg Rate and Rhythm Neuro: Positive: Grossly Intact Extremities: Absent: edema - Labs and Meds CBC 02/06/18 Range/Units 07:11 Hgb 9.4 L (10.1-14.3) gm/dl Hct 28.4 L (30.3-42.9) % Plt Count 235 (140-440) K/mm3 Comprehensive Metabolic Panel 02/06/18 Range/Units 07:11 Potassium 3.4 L (3.6-5.0) mmol/L
[2018-02-06] MEDS: ELIQUIS PO SCH (10:41)
[2018-02-06] MEDS: VIBRAMYCIN PO SCH (10:42)
[2018-02-06] MEDS: ZESTRIL PO SCH (10:43)
[2018-02-06 10:59] VITALS: BP 105/61
[2018-02-06] MEDS ORDERED: CELLCEPT PO SCH (11:00)
[2018-02-06] MEDS ORDERED: LOPRESSOR PO SCH (11:00)
[2018-02-06] MEDS ORDERED: HALFPRIN EC PO SCH (11:00)
[2018-02-06] MEDS ORDERED: K-DUR PO ONE (11:00)
[2018-02-06] MEDS ORDERED: LANOXIN PO SCH (11:00)
--- NOTE | 2018-02-06 12:22 | Discharge Summary ---
Providers - Providers Date of Admission: 02/04/18 04:04 Date of discharge: 02/06/18 Attending physician: ELVIS GONZALEZ 02/04/18 06:19 Consult to Physician [CONS] Routine Comment: Consulting Provider: MEL LEDBETTER Physician Instructions: Reason For Exam: A.FIB WITH RVR AND NSTEMI Primary care physician: MIESHA EISENBERG Hospitalization Condition: Stable Time spent for discharge: 32 min Core Measure Documentation - Palliative Care Palliative Care/ Comfort Measures: Not Applicable - Core Measures Any of the following diagnoses?: none Exam - Constitutional Vitals: Temp Pulse Resp BP Pulse Ox 98.6 F 111 H 18 105/61 92 02/06/18 07:37 02/06/18 08:35 02/06/18 08:35 02/06/18 07:37 02/06/18 07:37 General appearance: Present: no acute distress, well-nourished - EENT Eyes: Present: PERRL, EOM intact - Neck Neck: Present: supple, normal ROM - Respiratory Respiratory effort: normal Respiratory: negative: rales, rhonchi, wheezing - Cardiovascular Rhythm: regular Heart Sounds: Present: S1 & S2 - Extremities Extremities: no ischemia, No edema - Abdominal General gastrointestinal: Present: soft, non-tender, non-distended, normal bowel sounds - Integumentary Integumentary: Present: clear, warm - Musculoskeletal Musculoskeletal: strength equal bilaterally - Psychiatric Psychiatric: appropriate mood/affect, cooperative - Neurologic Neurologic: CNII-XII intact, moves all extremities Plan Activity: advance as tolerated Diet: other (cardiac diet) Additional Instructions: Follow-up with private real estate agent/broker/Dr. Orta for further evaluation of corpulmonale/pulmonary hypertension Follow up with: MIESHA EISENBERG MD [Primary Care Provider] - 7 Days GÓMEZ MCDONALD MD [Staff Physician] - 7 Days KRUPA FERNÁNDEZ MD [Staff Physician] - 7 Days Prescriptions: ALBUTEROL Inhaler [ProAir HFA Inhaler] 2 puff IH QID PRN #1 inhalation PRN Reason: Shortness Of Breath Apixaban [Eliquis] 5 mg PO BID #60 tablet AtorvaSTATin [Lipitor] 40 mg PO QHS #30 tablet Bumetanide (Nf) [Bumex 0.5mg tab] 1 mg PO BID #60 tablet Digoxin [Lanoxin] 125 mcg PO DAILY #30 tablet Lisinopril [Zestril TAB] 2.5 mg PO QDAY #30 tablet Metoprolol [Lopressor TAB] 50 mg PO BID #60 tablet
[2018-02-06] MEDS ORDERED: TESSALON PERLES PO SCH (14:00)
[2018-02-06] MEDS: TYLENOL PO PRN (16:09)
--- NOTE | 2018-02-06 22:56 | Treadmill Report ---
THALLIUM STRESS TEST LEFT VENTRICLE: Left ventricular chamber size is within normal. Perfusion study demonstrates homogeneous uptake of the tracer in all segments, no significant perfusion defects identified. Mild breast attenuation artifact is noted. Gated analysis is not available due to the patient's underlying atrial fibrillation. CONCLUSION: Normal myocardial perfusion study, no ischemia demonstrated on this study. Clinical correlation is recommended. JOB# [id number] CA/NTS
== END 2018-02-06 17:55 | disposition home or self-care (01) | DRG 281 ==
LOC: ED 22:10 → 4A 02-04 04:04
PROVIDERS: ADMIT Internal Medicine; ATTEND Internal Medicine
DX: I21.4 Non-ST elevation (NSTEMI) myocardial infarction (principal); I31.3 Pericardial effusion (noninflammatory); K56.7 Ileus, unspecified; I42.0 Dilated cardiomyopathy; I48.92 Unspecified atrial flutter; K59.00 Constipation, unspecified; I48.91 Unspecified atrial fibrillation; I48.2 Chronic atrial fibrillation; M34.9 Systemic sclerosis, unspecified; I50.9 Heart failure, unspecified; J44.9 Chronic obstructive pulmonary disease, unspecified; I27.81 Cor pulmonale (chronic); I27.20 Pulmonary hypertension, unspecified; E87.6 Hypokalemia; E83.42 Hypomagnesemia; Z79.899 Other long term (current) drug therapy; Z87.891 Personal history of nicotine dependence
CPT/HCPCS: 36415; 71045; 71275; 74177; 78452; 80048; 80053; 80061; 80162; 82550; 82553; 83690; 83735; 83880; 84132; 84439; 84443; 84484; 85014; 85018; 85025; 85049; 85379; 85520; 85610; 85730; 93005; 93010; 93017; 93306; 94640; 96365; 96375; A9270-GY; A9502; J1644; J2270; J2405; J2785; J3475; J3480; J7040; J7517; Q9967

== ENCOUNTER 2018-02-17 00:48 | Inpatient (IN) | payer MEDICAID ==
[2018-02-17] MEDS ORDERED: TYLENOL ONE (01:26)
[2018-02-17] MEDS ORDERED: TYLENOL PO ONE (01:47)
[2018-02-17 02:11] LABS: Alanine Aminotransferase 19 units/L (7-56); Albumin 3.8 g/dL (3.9-5); BUN/Creatinine Ratio 27; Blood Urea Nitrogen 19 mg/dL (7-17); Calcium 9.3 mg/dL (8.4-10.2); Hemolysis Index 7
[2018-02-17 02:27] LABS: Basophils # (Auto) 0.1 K/mm3 (0.0-0.1); Basophils % (Auto) 1.1 % (0.0-1.8); Eosinophils % (Auto) 0.3 % (0.0-4.3); Hematocrit 34.9 % (30.3-42.9); Hemoglobin 11.6 gm/dl (10.1-14.3); Lymphocytes # (Auto) 1.3 K/mm3 (1.2-5.4); Lymphocytes % (Auto) 15.1 % (13.4-35.0); Mean Corpuscular HGB Conc 33 % (30-34); Mean Corpuscular Hemoglobin 26 pg (28-32); Mean Corpuscular Volume 79 fl (79-97); Monocytes # (Auto) 0.6 K/mm3 (0.0-0.8); Monocytes % (Auto) 7.2 % (0.0-7.3); Platelet Count 350 K/mm3 (140-440); Red Blood Count 4.42 M/mm3 (3.65-5.03); Red Cell Distribution Width 16.6 % (13.2-15.2)
[2018-02-17] MEDS ORDERED: DILAUDID IV ONE ×3 (03:36→05:18)
[2018-02-17] MEDS ORDERED: NACL 0.9% 1000 ML 1,000 ML IV ONE ×2 (03:36→05:26)
[2018-02-17] MEDS ORDERED: ZOFRAN IV ONE (03:36)
[2018-02-17 04:22] LABS: Bacteria,Urine 1+ /HPF (Negative); Bilirubin,Urine NEG (Negative); Blood,Urine NEG (Negative); Color,Urine Yellow (Yellow); Hyaline Casts,Urine 86 /LPF; Mucus,Urine 1+ /HPF; Renal Epithelial Cells,Urine 4 /LPF; Urobilinogen,Urine < 2.0 mg/dL (<2.0)
--- NOTE | 2018-02-17 04:53 | Cat Scan Report ---
FINAL REPORT EXAM: CT ABDOMEN PELVIS W CON HISTORY: abd pain, distention, n,v TECHNIQUE: Routine axial imaging was obtained of the abdomen and pelvis following the intravenous injection of 100 cc of Omnipaque 300. Delayed imaging was obtained through the kidneys ureters and bladder. Sagittal and coronal reconstructions were reviewed. Comparison is made study of 02/04/2018. FINDINGS: Imaging through lung bases reveal severe emphysematous changes with extensive ground-glass attenuation in both lower lobes. The heart is moderately enlarged and there is a stable moderate pericardial effusion. There is worsening ascites in the abdomen and pelvis since the previous study. The heart appears mildly enlarged with diminished attenuation compatible with hepatic steatosis. The gallbladder and biliary tree appear normal. The pancreas, spleen and adrenal glands appear normal. The kidneys enhance normally. The vascular structures enhance normally. There is moderate distention of multiple small bowel loops with air-fluid levels suspicious for a partial mechanical small bowel obstruction. The colon is relatively decompressed. There are numerous uncomplicated colonic diverticula. In the pelvis there is a 2.7 cm calcified fibroid in the posterior wall of the uterus. The bladder is unremarkable. The skeletal structures reveal multilevel disc degeneration in the lower thoracic and lumbar spine. There is also generalized reticulation of the subcutaneous fat throughout the abdomen pelvis suggesting anasarca. IMPRESSION: Findings compatible with a mechanical small bowel obstruction. Worsening ascites since the previous study. Severe emphysematous changes in both lung bases without acute infiltrates. Cardiomegaly with stable moderate size pericardial effusion. Uncomplicated colonic diverticulosis. Multilevel disc degeneration in the lumbar spine and lower thoracic spine. Reticulation of the subcutaneous fat throughout the abdomen and pelvis compatible with underlying anasarca.
[2018-02-17] MEDS ORDERED: LIDOCAINE VISCOUS 2% PO ONE (05:10)
--- NOTE | 2018-02-17 05:18 | Emergency Department Report ---
ED Abdominal Pain HPI - General Chief Complaint: Abdominal Pain Stated Complaint: ABD PAIN Time Seen by Provider: 02/17/18 03:31 Source: patient, old records reviewed Mode of arrival: Ambulatory Limitations: No Limitations - History of Present Illness Initial Comments: 62-year-old female with a past medical history scleroderma, A. fib/flutter and DVT currently on Eliquis, CHF, and asthma presents to the hospital complaints of abdominal pain since 6 PM yesterday. Patient with nausea, vomiting and feeling tolerance. Last bowel movement was 9 PM last night. Patient denies previous abdominal surgeries. Pain is 10/10 intensity, constant, worse with palpation, no alleviating factors. Patient admitted by me for possible WA and aflutter/fib. Stress test during examination was negative. She had CT angio chest abdomen and pelvis. Abdomen and pelvis CT suggestive of ileus at that time. See recent admission for further details Severity scale (0 -10): 10 - Related Data Home Medications Medication Instructions Recorded Confirmed Last Taken Aspirin EC [Aspirin Enteric Coated 81 mg PO DAILY 02/06/18 02/06/18 3 Days Ago TAB] ~02/03/18 Benzonatate [Tessalon Perle] 300 mg PO TID 02/06/18 02/06/18 3 Days Ago ~02/03/18 Famotidine [Pepcid] 20 mg PO TID 02/06/18 02/06/18 3 Days Ago ~02/03/18 Mycophenolate [Cellcept] 500 mg PO BID 02/06/18 02/06/18 3 Days Ago ~02/03/18 Previous Rx's Medication Instructions Recorded Last Taken Type Cyclobenzaprine HCl [Flexeril 5 MG 5 mg PO Q8HR #20 tablet 06/01/15 1 Month Ago Rx TAB] ~01/05/18 ALBUTEROL Inhaler [ProAir HFA 2 puff IH QID PRN #1 inhalation 02/06/18 Unknown Rx Inhaler] Apixaban [Eliquis] 5 mg PO BID #60 tablet 02/06/18 Unknown Rx Bumetanide (Nf) [Bumex 0.5mg tab] 1 mg PO BID #60 tablet 02/06/18 Unknown Rx Digoxin [Lanoxin] 125 mcg PO DAILY #30 tablet 02/06/18 Unknown Rx Lisinopril [Zestril TAB] 2.5 mg PO QDAY #30 tablet 02/06/18 Unknown Rx Metoprolol [Lopressor TAB] 50 mg PO BID #60 tablet 02/06/18 Unknown Rx Allergies Allergy/AdvReac Type Severity Reaction Status Date / Time No Known Allergies Allergy Verified 06/01/15 17:48 ED Review of Systems ROS: Stated complaint: ABD PAIN Other details as noted in HPI Comment: All other systems reviewed and negative ED Past Medical Hx - Past Medical History Previous Medical History?: Yes Hx Heart Attack/AMI: Yes (last monday) Hx Congestive Heart Failure: Yes Hx Asthma: Yes Additional medical history: dvt, clot in rt arm. Scleroderma. A. fib/flutter - Surgical History Past Surgical History?: No - Social History Smoking Status: Never Smoker Substance Use Type: None - Medications Home Medications: Home Medications Medication Instructions Recorded Confirmed Last Taken Type Cyclobenzaprine HCl [Flexeril 5 MG 5 mg PO Q8HR #20 tablet 06/01/15 02/05/18 1 Month Ago Rx TAB] ~01/05/18 ALBUTEROL Inhaler [ProAir HFA 2 puff IH QID PRN #1 inhalation 02/06/18 Unknown Rx Inhaler] Apixaban [Eliquis] 5 mg PO BID #60 tablet 02/06/18 Unknown Rx Aspirin EC [Aspirin Enteric Coated 81 mg PO DAILY 02/06/18 02/06/18 3 Days Ago History TAB] ~02/03/18 Benzonatate [Tessalon Perle] 300 mg PO TID 02/06/18 02/06/18 3 Days Ago History ~02/03/18 Bumetanide (Nf) [Bumex 0.5mg tab] 1 mg PO BID #60 tablet 02/06/18 Unknown Rx Digoxin [Lanoxin] 125 mcg PO DAILY #30 tablet 02/06/18 Unknown Rx Famotidine [Pepcid] 20 mg PO TID 02/06/18 02/06/18 3 Days Ago History ~02/03/18 Lisinopril [Zestril TAB] 2.5 mg PO QDAY #30 tablet 02/06/18 Unknown Rx Metoprolol [Lopressor TAB] 50 mg PO BID #60 tablet 02/06/18 Unknown Rx Mycophenolate [Cellcept] 500 mg PO BID 02/06/18 02/06/18 3 Days Ago History ~02/03/18 ED Physical Exam - General Limitations: No Limitations - Other Other exam information: General: Positive distress secondary to pain Head exam: Atraumatic, normocephalic Eyes exam: Normal appearance ENT: Moist mucous membrane, normal oropharynx Neck exam: Normal inspection, full range of motion, no meningismus nontender Respiratory exam: Clear to auscultation bilateral, no wheezes, rales, crackles Cardiovascular: irregular rhythm Abdomen: Distended and firm bowel sounds with generalized tenderness and diminished bowel sounds. No rebound or guarding Extremity: Full range of motion normal inspection no deformity Back: Normal Inspection, full range of motion, no tenderness Neurologic: Alert, oriented x3, cranial nerves intact, no motor or sensory deficit Skin: Scleroderma ED Course Vital Signs 02/17/18 02/17/18 02/17/18 01:11 01:50 02:50 Temperature 99.6 F Pulse Rate 79 Respiratory 56 H 18 20 Rate Blood Pressure 104/65 Blood Pressure [Left] O2 Sat by Pulse 98 Oximetry 02/17/18 02/17/18 02/17/18 03:26 03:33 03:55 Temperature 97.4 F L Pulse Rate 96 H Respiratory 16 16 18 Rate Blood Pressure Blood Pressure 105/74 [Left] O2 Sat by Pulse 95 95 Oximetry 02/17/18 02/17/18 04:25 04:48 Temperature Pulse Rate Respiratory 20 20 Rate Blood Pressure Blood Pressure [Left] O2 Sat by Pulse Oximetry - Reevaluation(s) Reevaluation #1: 02/17/18 05:18 Continues to have significant discomfort despite Dilaudid 0.5 mg 2 and zofran with vomiting. Additional Dilaudid ordered. NGT pending - Consultations Consultation #1: 02/17/18 05:13 Case discussed with general surgeon on-call Dr. Gannon. Recommends to hold Eliquis in preparation for possible surgery, NG tube, and will consult ED Medical Decision Making - Lab Data Result diagrams: 02/17/18 01:37 02/17/18 01:37 Lab Results 02/17/18 02/17/18 02/17/18 Range/Units 01:37 01:37 01:37 WBC 8.7 (4.5-11.0) K/mm3 RBC 4.42 (3.65-5.03) M/mm3 Hgb 11.6 (10.1-14.3) gm/dl Hct 34.9 (30.3-42.9) % MCV 79 (79-97) fl MCH 26 L (28-32) pg MCHC 33 (30-34) % RDW 16.6 H (13.2-15.2) % Plt Count 350 (140-440) K/mm3 Lymph % (Auto) 15.1 (13.4-35.0) % [place] % (Auto) 7.2 (0.0-7.3) % Eos % (Auto) 0.3 (0.0-4.3) % Baso % (Auto) 1.1 (0.0-1.8) % Lymph # 1.3 (1.2-5.4) K/mm3 [place] # 0.6 (0.0-0.8) K/mm3 Eos # 0.0 (0.0-0.4) K/mm3 Baso # 0.1 (0.0-0.1) K/mm3 Seg Neutrophils % 76.3 H (40.0-70.0) % Seg Neutrophils # 6.6 (1.8-7.7) K/mm3 Sodium 135 L (137-145) mmol/L Potassium 3.9 (3.6-5.0) mmol/L Chloride 93.4 L (98-107) mmol/L Carbon Dioxide 24 (22-30) mmol/L Anion Gap 22 mmol/L BUN 19 H (7-17) mg/dL Creatinine 0.7 (0.7-1.2) mg/dL Estimated GFR > 60 ml/min BUN/Creatinine Ratio 27 % Glucose 99 (65-100) mg/dL Calcium 9.3 (8.4-10.2) mg/dL Total Bilirubin 0.60 (0.1-1.2) mg/dL AST 34 (5-40) units/L ALT 19 (7-56) units/L Alkaline Phosphatase 70 (35-129) units/L Total Protein 6.9 (6.3-8.2) g/dL Albumin 3.8 L (3.9-5) g/dL Albumin/Globulin Ratio 1.2 % Lipase 28 (13-60) units/L Urine Color (Yellow) Urine Turbidity (Clear) Urine pH (5.0-7.0) Ur Specific [place] (1.003-1.030) Urine Protein (Negative) mg/dL Urine Glucose (UA) (Negative) mg/dL Urine Ketones (Negative) mg/dL Urine Blood (Negative) Urine Nitrite (Negative) Urine Bilirubin (Negative) Urine Urobilinogen (<2.0) mg/dL Ur Leukocyte Esterase (Negative) Urine WBC (Auto) (0.0-6.0) /HPF Urine RBC (Auto) (0.0-6.0) /HPF Urine Bacteria (Auto) (Negative) /HPF Ur Renal Epithelial Cell /LPF Hyaline Casts /LPF Urine Mucus /HPF 02/17/18 Range/Units 03:59 WBC (4.5-11.0) K/mm3 RBC (3.65-5.03) M/mm3 Hgb (10.1-14.3) gm/dl Hct (30.3-42.9) % MCV (79-97) fl MCH (28-32) pg MCHC (30-34) % RDW (13.2-15.2) % Plt Count (140-440) K/mm3 Lymph % (Auto) (13.4-35.0) % [place] % (Auto) (0.0-7.3) % Eos % (Auto) (0.0-4.3) % Baso % (Auto) (0.0-1.8) % Lymph # (1.2-5.4) K/mm3 [place] # (0.0-0.8) K/mm3 Eos # (0.0-0.4) K/mm3 Baso # (0.0-0.1) K/mm3 Seg Neutrophils % (40.0-70.0) % Seg Neutrophils # (1.8-7.7) K/mm3 Sodium (137-145) mmol/L Potassium (3.6-5.0) mmol/L Chloride (98-107) mmol/L Carbon Dioxide (22-30) mmol/L Anion Gap mmol/L BUN (7-17) mg/dL Creatinine (0.7-1.2) mg/dL Estimated GFR ml/min BUN/Creatinine Ratio % Glucose (65-100) mg/dL Calcium (8.4-10.2) mg/dL Total Bilirubin (0.1-1.2) mg/dL AST (5-40) units/L ALT (7-56) units/L Alkaline Phosphatase (35-129) units/L Total Protein (6.3-8.2) g/dL Albumin (3.9-5) g/dL Albumin/Globulin Ratio % Lipase (13-60) units/L Urine Color Yellow (Yellow) Urine Turbidity Clear (Clear) Urine pH 5.0 (5.0-7.0) Ur Specific [place] 1.015 (1.003-1.030) Urine Protein 100 mg/dl (Negative) mg/dL Urine Glucose (UA) Neg (Negative) mg/dL Urine Ketones Tr (Negative) mg/dL Urine Blood Neg (Negative) Urine Nitrite Neg (Negative) Urine Bilirubin Neg (Negative) Urine Urobilinogen < 2.0 (<2.0) mg/dL Ur Leukocyte Esterase Neg (Negative) Urine WBC (Auto) 9.0 H (0.0-6.0) /HPF Urine RBC (Auto) 7.0 (0.0-6.0) /HPF Urine Bacteria (Auto) 1+ (Negative) /HPF Ur Renal Epithelial Cell 4 /LPF Hyaline Casts 86 /LPF Urine Mucus 1+ /HPF - Radiology Data Radiology results: report reviewed Ct abd/pelvis IV IMPRESSION: Findings compatible with a mechanical small bowel obstruction. Worsening ascites since the previous study. Severe emphysematous changes in both lung bases without acute infiltrates. Cardiomegaly with stable moderate size pericardial effusion. Uncomplicated colonic diverticulosis. Multilevel disc degeneration in the lumbar spine and lower thoracic spine. Reticulation of the subcutaneous fat throughout the abdomen and pelvis compatible with underlying anasarca. - Medical Decision Making Plan to admit patient to the hospital for partial small bowel obstruction NG tube placed Surgery consulted, please hold Eliquis Given multiple medical problems patient will be admitted to hospitalist service Dr Magi Kelly rec admission under Dr izaguirre and 1/2 NS at 75ml/hr - Differential Diagnosis obstruction, ascites, gastritis, appendicitis Critical Care Time: No Critical care attestation.: If time is entered above; I have spent that time in minutes in the direct care of this critically ill patient, excluding procedure time. ED Disposition Clinical Impression: Partial small bowel obstruction, Scleroderma, Anticoagulant long-term use, Atrial fibrillation Disposition: 09 OP ADMIT IP TO THIS HOSP Is pt being admited?: Yes Condition: Stable Time of Disposition: 05:27 (Dr Kelly/Juana)
--- NOTE | 2018-02-17 05:54 | XRay Report ---
FINAL REPORT EXAM: XR ABDOMEN 1V AP HISTORY: ngt placement TECHNIQUE: A supine view of the upper abdomen was obtained. FINDINGS: The tip of the NG tube is in good position in the mid stomach. The bowel gas pattern is suspicious for partial mechanical small bowel obstruction. Free air is not seen but the lung bases are clear. IMPRESSION: Tip of the NG tube in the mid body of the stomach. Probable mechanical small bowel obstruction with dilatation of small-bowel loops.
[2018-02-17] MEDS ORDERED: ZOFRAN IV PRN (06:05)
[2018-02-17] MEDS ORDERED: MORPHINE ONE (06:34)
[2018-02-17] MEDS: MORPHINE IV PRN ×3 (07:10→17:59)
--- NOTE | 2018-02-17 08:07 | History and Physical Report ---
History of Present Illness Date of examination: 02/17/18 Date of admission: 02/17/18 05:30 Chief complaint: Abdominal pain History of present illness: 62-year-old -[place] female with past medical history significant for scleroderma, CHF, A. fib on, cor pulmonale presented to the emergency department complaining of abdominal pain that started yesterday around 6 PM. Patient initially started on the mid abdomen that later become generalized, and was sharp, 10 out of 10 intensity, radiated to the back associated with nausea vomiting. Patient said she had bowel movement 2hrs after pain started, that ease up the pain a little bit after that the patient denied BM. patient said she passed gas later this morning 2x. Surgery consulted and place NG tube and ordered abdominal series. cardiology was consulted for cardiac clearance id surgery needed and managemnet of her CHF and a fib. patient is NPO. REVIEW OF SYSTEMS: GENERAL: no weight change, no fatigue, no fever HEAD: no head ache EYES: no blurry vision, no acute visual loss EARS: no hearing loss, no discharge, no earache NOSE: no stuffiness, no sneezing, no discharge MOUTH, THROAT AND NECK: no bleeding gums, no sore throat, no swollen neck CARDIAC: no palpitations, no dyspnea on exertion, no orthopnea, no PND, no edema , no chest pain RESPIRATORY: no shortness of breath, no wheeze, no cough, no sputum, no hemoptysis, no asthma GI: As stated in the HPI. URINARY: no change in frequency, no urgency, no polyuria, no hematuria, no incontinence MUSCULOSKELETAL: no muscle weakness, no pain, no joint stiffness NEUROLOGIC: no loss of sensation/numbness, no tingling, no tremors, no weakness/ paralysis HEMATOLOGIC: no anemia, no easy bruising SKIN: no rashes ENDOCRINE: no heat/cold intolerance, no polyuria, no polydipsia, no thyroid problems, no diabetes PSYCHIATRIC: no anxiety, no depression, no suicidal ideations Past History Past Medical History: atrial fib, heart failure, hypertension, other ( scleroderma) Past Surgical History: No surgical history Social history: full code. denies: smoking, alcohol abuse, prescription drug abuse, IV drug use Family history: no significant family history Medications and Allergies Allergies Allergy/AdvReac Type Severity Reaction Status Date / Time No Known Allergies Allergy Verified 06/01/15 17:48 Home Medications Medication Instructions Recorded Confirmed Last Taken Type Cyclobenzaprine HCl [Flexeril 5 MG 5 mg PO Q8HR #20 tablet 06/01/15 02/05/18 1 Month Ago Rx TAB] ~01/05/18 ALBUTEROL Inhaler [ProAir HFA 2 puff IH QID PRN #1 inhalation 02/06/18 Unknown Rx Inhaler] Apixaban [Eliquis] 5 mg PO BID #60 tablet 02/06/18 Unknown Rx Aspirin EC [Aspirin Enteric Coated 81 mg PO DAILY 02/06/18 02/06/18 3 Days Ago History TAB] ~02/03/18 Benzonatate [Tessalon Perle] 300 mg PO TID 02/06/18 02/06/18 3 Days Ago History ~02/03/18 Bumetanide (Nf) [Bumex 0.5mg tab] 1 mg PO BID #60 tablet 02/06/18 Unknown Rx Digoxin [Lanoxin] 125 mcg PO DAILY #30 tablet 02/06/18 Unknown Rx Famotidine [Pepcid] 20 mg PO TID 02/06/18 02/06/18 3 Days Ago History ~02/03/18 Lisinopril [Zestril TAB] 2.5 mg PO QDAY #30 tablet 02/06/18 Unknown Rx Metoprolol [Lopressor TAB] 50 mg PO BID #60 tablet 02/06/18 Unknown Rx Mycophenolate [Cellcept] 500 mg PO BID 02/06/18 02/06/18 3 Days Ago History ~02/03/18 Active Meds: Active Medications Morphine Sulfate (Morphine) 2 mg IV Q4H PRN PRN Reason: Pain, Moderate (4-6) Last Admin: 02/17/18 07:10 Dose: 2 mg Ondansetron HCl (Zofran) 4 mg IV Q4H PRN PRN Reason: N/V IF NPO AND NO IV ACCESS Exam - Physical Exam Narrative exam: Not in cardiopulmonary distress. NG tube in place. The patient appeared well nourished and normally developed. Vital signs as documented. Head exam is unremarkable. No scleral icterus . Neck is without jugular venous distension, thyromegaly, or carotid bruits. Lungs are clear to auscultation. Cardiac exam reveals regular rate and Rhythm. First and second heart sounds normal. No murmurs, rubs or gallops. Abdominal exam reveals mild tenderness on the mid abdomen. Extremities are nonedematous and both femoral and pedal pulses are normal. Integumentary: thickened skin. PHYSICIAN LOCUMS URGENT CARE: Alert and oriented 3. No focal weakness. - Constitutional Vitals: Temp Pulse Resp BP Pulse Ox 97.4 F L 96 H 20 120/74 98 02/17/18 03:33 02/17/18 03:33 02/17/18 07:10 02/17/18 05:45 02/17/18 03:46 Results - Labs CBC & Chem 7: 02/17/18 01:37 02/17/18 01:37 Labs: Laboratory Last Values WBC 8.7 K/mm3 (4.5-11.0) 02/17/18 01:37 RBC 4.42 M/mm3 (3.65-5.03) 02/17/18 01:37 Hgb 11.6 gm/dl (10.1-14.3) 02/17/18 01:37 Hct 34.9 % (30.3-42.9) 02/17/18 01:37 MCV 79 fl (79-97) 02/17/18 01:37 MCH 26 pg (28-32) L 02/17/18 01:37 MCHC 33 % (30-34) 02/17/18 01:37 RDW 16.6 % (13.2-15.2) H 02/17/18 01:37 Plt Count 350 K/mm3 (140-440) 02/17/18 01:37 Lymph % (Auto) 15.1 % (13.4-35.0) 02/17/18 01:37 [place] % (Auto) 7.2 % (0.0-7.3) 02/17/18 01:37 Eos % (Auto) 0.3 % (0.0-4.3) 02/17/18 01:37 Baso % (Auto) 1.1 % (0.0-1.8) 02/17/18 01:37 Lymph # 1.3 K/mm3 (1.2-5.4) 02/17/18 01:37 [place] # 0.6 K/mm3 (0.0-0.8) 02/17/18 01:37 Eos # 0.0 K/mm3 (0.0-0.4) 02/17/18 01:37 Baso # 0.1 K/mm3 (0.0-0.1) 02/17/18 01:37 Seg Neutrophils % 76.3 % (40.0-70.0) H 02/17/18 01:37 Seg Neutrophils # 6.6 K/mm3 (1.8-7.7) 02/17/18 01:37 Sodium 135 mmol/L (137-145) L 02/17/18 01:37 Potassium 3.9 mmol/L (3.6-5.0) 02/17/18 01:37 Chloride 93.4 mmol/L (98-107) L 02/17/18 01:37 Carbon Dioxide 24 mmol/L (22-30) 02/17/18 01:37 Anion Gap 22 mmol/L 02/17/18 01:37 BUN 19 mg/dL (7-17) H 02/17/18 01:37 Creatinine 0.7 mg/dL (0.7-1.2) 02/17/18 01:37 Estimated GFR > 60 ml/min 02/17/18 01:37 BUN/Creatinine Ratio 27 % 02/17/18 01:37 Glucose 99 mg/dL (65-100) 02/17/18 01:37 Calcium 9.3 mg/dL (8.4-10.2) 02/17/18 01:37 Total Bilirubin 0.60 mg/dL (0.1-1.2) 02/17/18 01:37 AST 34 units/L (5-40) 02/17/18 01:37 ALT 19 units/L (7-56) 02/17/18 01:37 Alkaline Phosphatase 70 units/L (35-129) 02/17/18 01:37 Total Protein 6.9 g/dL (6.3-8.2) 02/17/18 01:37 Albumin 3.8 g/dL (3.9-5) L 02/17/18 01:37 Albumin/Globulin Ratio 1.2 % 02/17/18 01:37 Lipase 28 units/L (13-60) 02/17/18 01:37 Urine Color Yellow (Yellow) 02/17/18 03:59 Urine Turbidity Clear (Clear) 02/17/18 03:59 Urine pH 5.0 (5.0-7.0) 02/17/18 03:59 Ur Specific [place] 1.015 (1.003-1.030) 02/17/18 03:59 Urine Protein 100 mg/dl mg/dL (Negative) 02/17/18 03:59 Urine Glucose (UA) Neg mg/dL (Negative) 02/17/18 03:59 Urine Ketones Tr mg/dL (Negative) 02/17/18 03:59 Urine Blood Neg (Negative) 02/17/18 03:59 Urine Nitrite Neg (Negative) 02/17/18 03:59 Urine Bilirubin Neg (Negative) 02/17/18 03:59 Urine Urobilinogen < 2.0 mg/dL (<2.0) 02/17/18 03:59 Ur Leukocyte Esterase Neg (Negative) 02/17/18 03:59 Urine WBC (Auto) 9.0 /HPF (0.0-6.0) H 02/17/18 03:59 Urine RBC (Auto) 7.0 /HPF (0.0-6.0) 02/17/18 03:59 Urine Bacteria (Auto) 1+ /HPF (Negative) 02/17/18 03:59 Ur Renal Epithelial Cell 4 /LPF 02/17/18 03:59 Hyaline Casts 86 /LPF 02/17/18 03:59 Urine Mucus 1+ /HPF 02/17/18 03:59 Assessment and Plan Assessment and plan: 62-year-old -[place] female with past medical history significant for scleroderma, CHF, A. fib presented to the emergency department for complaints of abdominal pain, nausea, and vomiting. CT of the abdomen in the emergency Department showed the small bowel obstruction Intestinal obstruction - Surgery was consulted and patient was put nothing by mouth, inserted NG tube for today, patient is on IVF 50ml/hr because of her CHF - Abdominal series CHF, cor pulmonale, pulmonary hypertension - Patient started on IV Lasix - Cardiology consulted [place] fib - Patient was on an aggressive outpatient - Currently patient's nothing by mouth - cardiology consulted DVT prophylaxis - SCDs because patient may need surgery Disposition - Continue inpatient care Advance Directives: Yes Plan of care discussed with patient/family: Yes
[2018-02-17] MEDS ORDERED: NACL 0.9% 1000 ML 1,000 ML IV SCH (12:00)
[2018-02-17] MEDS ORDERED: PROAIR IH PRN (12:27)
[2018-02-17] MEDS ORDERED: PROVENTIL IH PRN (12:32)
--- NOTE | 2018-02-17 16:34 | Consultation ---
History of Present Illness Consult date: 02/17/18 Reason for consult: abdominal pain Requesting physician: CURTIS HUSSEIN Chief complaint: abdominal pain and swelling - History of present illness History of present illness: 62yo F with h/o scleroderma and recent AMI and RUE DVT presents with acute onset of abdominal pain and swelling since 6pm yesterday. Work-up revealed PSBO. NGT was placed. Pt reports that she is less bloated and pain is less. Never had anything similar in the past. Denies any abdominal surgeries or interventions. Past History Past Medical History: atrial fib, DVT (RUE), heart failure, hypertension, other (scleroderma) Past Surgical History: No surgical history Social history: full code. denies: smoking, alcohol abuse, prescription drug abuse, IV drug use Family history: no significant family history Medications and Allergies Allergies Allergy/AdvReac Type Severity Reaction Status Date / Time No Known Allergies Allergy Verified 06/01/15 17:48 Home Medications Medication Instructions Recorded Confirmed Last Taken Type Cyclobenzaprine HCl [Flexeril 5 MG 5 mg PO Q8HR #20 tablet 06/01/15 02/05/18 1 Month Ago Rx TAB] ~01/05/18 ALBUTEROL Inhaler [ProAir HFA 2 puff IH QID PRN #1 inhalation 02/06/18 Unknown Rx Inhaler] Apixaban [Eliquis] 5 mg PO BID #60 tablet 02/06/18 Unknown Rx Aspirin EC [Aspirin Enteric Coated 81 mg PO DAILY 02/06/18 02/06/18 3 Days Ago History TAB] ~02/03/18 Benzonatate [Tessalon Perle] 300 mg PO TID 02/06/18 02/06/18 3 Days Ago History ~02/03/18 Bumetanide (Nf) [Bumex 0.5mg tab] 1 mg PO BID #60 tablet 02/06/18 Unknown Rx Digoxin [Lanoxin] 125 mcg PO DAILY #30 tablet 02/06/18 Unknown Rx Famotidine [Pepcid] 20 mg PO TID 02/06/18 02/06/18 3 Days Ago History ~02/03/18 Lisinopril [Zestril TAB] 2.5 mg PO QDAY #30 tablet 02/06/18 Unknown Rx Metoprolol [Lopressor TAB] 50 mg PO BID #60 tablet 02/06/18 Unknown Rx Mycophenolate [Cellcept] 500 mg PO BID 02/06/18 02/06/18 3 Days Ago History ~02/03/18 Active Meds: Active Medications Albuterol (Proventil) 2.5 mg IH Q4H PRN PRN Reason: Shortness Of Breath Furosemide (Lasix) 20 mg IV 0600,1800 [facility] Hydrophilic Ointment (Vaseline Lip Therapy) 1 applic TP DIRECT PRN PRN Reason: Dry Lips Sodium Chloride (Nacl 0.9% 1000 Ml) 1,000 mls @ 50 mls/hr IV DIRECT [facility] Last Admin: 02/17/18 15:01 Dose: 50 mls/hr Morphine Sulfate (Morphine) 2 mg IV Q4H PRN PRN Reason: Pain, Moderate (4-6) Last Admin: 02/17/18 11:14 Dose: 2 mg Ondansetron HCl (Zofran) 4 mg IV Q4H PRN PRN Reason: N/V IF NPO AND NO IV ACCESS Last Admin: 02/17/18 11:14 Dose: 4 mg Review of Systems - Constitutional no fever, no chills - Cardiovascular no chest pain - Respiratory no cough, no shortness of breath - Gastrointestinal abdominal pain, nausea, change in bowel habits, dyspepsia/bloating, other (did pass flatus today), no vomiting, no hematemesis, no BRBPR, no melena, no hematochezia - Genitourinary Genitourinary: no dysuria - Integumentary no rash, no wounds Exam Vital Signs Temp Pulse Resp BP Pulse Ox 99.6 F 79 56 H 104/65 98 02/17/18 01:11 02/17/18 01:11 02/17/18 01:11 02/17/18 01:11 02/17/18 01:11 - General physical appearance Positive: no distress - Eyes Positive: normal occular movement - Respiratory Positive: normal expansion, normal respiratory effort, clear to auscultation - Cardiovascular Rhythm: regular Heart Sounds: Present: systolic murmur - Extremities Extremities: normal temperature, normal color - Abdomen Abdomen: Present: soft, tender (mild, especially in epigastric area; no pelvic shake tenderness), bowel sounds hypoactive, distended, other (NGT in place with bilious fluid). Absent: guarding, rigid, surgical scars Hernia: none - Genitourinary Female Genitourinary: deferred - Integumentary no rash, no growths, no abnormal pigmentation - Neurologic Neurologic: alert and oriented to time, place and person, motor strength and sensation are grossly intact - Psychiatric Psychiatric: appropriate mood/affect, intact judgment & insight Results - Labs 02/17/18 01:37 02/17/18 01:37 Abnormal lab results 02/17/18 02/17/18 02/17/18 Range/Units 01:37 01:37 03:59 MCH 26 L (28-32) pg RDW 16.6 H (13.2-15.2) % Seg Neutrophils % 76.3 H (40.0-70.0) % Sodium 135 L (137-145) mmol/L Chloride 93.4 L (98-107) mmol/L BUN 19 H (7-17) mg/dL Albumin 3.8 L (3.9-5) g/dL Urine WBC (Auto) 9.0 H (0.0-6.0) /HPF Diabetes panel 02/17/18 Range/Units 01:37 Sodium 135 L (137-145) mmol/L Potassium 3.9 (3.6-5.0) mmol/L Chloride 93.4 L (98-107) mmol/L Carbon Dioxide 24 (22-30) mmol/L BUN 19 H (7-17) mg/dL Creatinine 0.7 (0.7-1.2) mg/dL Glucose 99 (65-100) mg/dL Calcium 9.3 (8.4-10.2) mg/dL AST 34 (5-40) units/L ALT 19 (7-56) units/L Alkaline Phosphatase 70 (35-129) units/L Total Protein 6.9 (6.3-8.2) g/dL Albumin 3.8 L (3.9-5) g/dL Calcium panel 02/17/18 Range/Units 01:37 Calcium 9.3 (8.4-10.2) mg/dL Albumin 3.8 L (3.9-5) g/dL Pituitary panel 02/17/18 Range/Units 01:37 Sodium 135 L (137-145) mmol/L Potassium 3.9 (3.6-5.0) mmol/L Chloride 93.4 L (98-107) mmol/L Carbon Dioxide 24 (22-30) mmol/L BUN 19 H (7-17) mg/dL Creatinine 0.7 (0.7-1.2) mg/dL Glucose 99 (65-100) mg/dL Calcium 9.3 (8.4-10.2) mg/dL Adrenal panel 02/17/18 Range/Units 01:37 Sodium 135 L (137-145) mmol/L Potassium 3.9 (3.6-5.0) mmol/L Chloride 93.4 L (98-107) mmol/L Carbon Dioxide 24 (22-30) mmol/L BUN 19 H (7-17) mg/dL Creatinine 0.7 (0.7-1.2) mg/dL Glucose 99 (65-100) mg/dL Calcium 9.3 (8.4-10.2) mg/dL Total Bilirubin 0.60 (0.1-1.2) mg/dL AST 34 (5-40) units/L ALT 19 (7-56) units/L Alkaline Phosphatase 70 (35-129) units/L Total Protein 6.9 (6.3-8.2) g/dL Albumin 3.8 L (3.9-5) g/dL - Imaging Abdominal x-ray: report reviewed, image reviewed CT scan - abdomen: report reviewed, image reviewed Assessment and Plan - Patient Problems (1) Partial small bowel obstruction Current Visit: Yes Status: Acute Plan to address problem: Pt stable. Per patient, abdomen is improved from last night. No need for urgent intervention. With no prior history of abdominal surgery/procedure, have to be concerned that this obstruction is related to the scleroderma. In that case, this will not resolve with conservative therapy. Will order small bowel follow through to see if we can pinpoint an area of narrowing. If found, will need to see what her cardiac risk is for surgery. Would probably need to do a diagnostic laparoscopy and small bowel resection. All this was discussed with the patient. Time=45min
[2018-02-17] MEDS: LASIX IV SCH (17:17)
[2018-02-17] MEDS: VASELINE LIP THERAPY TP PRN (19:03)
[2018-02-18] MEDS: LASIX IV SCH ×2 (05:34→17:38)
--- NOTE | 2018-02-18 09:22 | Fluoroscopy Report ---
SMALL BOWEL SERIES: INDICATION: Partial small bowel obstruction. Scleroderma. No abdominal surgeries. Evaluate for narrowing. COMPARISON: CT from earlier today. IMAGES/CINE CLIPS: 9 FINDINGS: Small bowel series performed. Geospatial Image Analyst view demonstrates grossly nonobstructive bowel gas pattern. Esophagogastric tube tip in the proximal stomach with its side-port at or just past the GE junction. Right hemidiaphragm approximately 2.5 cm higher than the left. Few lower lumbar degenerative changes. A 3 cm calcified fibroid. Urinary bladder contrast opacification partially imaged. Serial abdominal radiographs subsequently obtained after administration of oral Gastrografin and demonstrate normal antegrade progression with small bowel transit time of approximately 3 hours and 30 minutes. No focal suspicious filling defects or mass identified, to the extent assessed. Few proximal to mid small bowel loops in the lower abdomen measure up to 5 cm caliber while few right lower quadrant loops measure up to approximately 3 cm. CONCLUSION: Small bowel dilatation up to 5 cm may represent a partial small bowel obstruction with transit time of approximately 3 hours and 30 minutes, as described above. Please correlate. Thank you for the opportunity to participate in this patient's care.
--- NOTE | 2018-02-18 10:57 | Consultation ---
History of Present Illness Consult date: 02/18/18 Consult reason: atrial fibrillation History of present illness: The patient is a 62-year-old woman admitted to the hospital with abdominal pain , nausea or vomiting, found to have partial small bowel obstruction. She is currently on the medical floor, with an NG tube to suction. General surgery is following and managing the bowel obstruction. The patient's cardiac history is notable for chronic atrial fibrillation. Atrial fibrillation was diagnosed in [facility] before she moved to the [facility] several years ago. She is on chronic oral anticoagulation therapy and rate control medications. Otherwise, there is no history of coronary artery disease, myocardial infarction, left ventricular systolic dysfunction or left-sided heart failure. A cardiac catheterization in June 2016 demonstrated angiographically normal coronary arteries. Left ventricular systolic function assessment including an echocardiogram performed just last month has consistently reported normal left ventricle systolic function, ejection fraction 55-60%. The major finding on the echocardiogram was evidence of cor pulmonale, with dilated right heart chambers and moderate pulmonary hypertension with pulmonary artery systolic pressure of 50 mmHg. On this presentation, there is no chest pain, no shortness of breath, no palpitations, no lower extremity edema, cardiac status is asymptomatic. EKG reveals chronic atrial fibrillation, with a well-controlled ventricular rate, evidence of right bundle branch block which is unchanged from previous tracing. Past History Past Medical History: atrial fib, DVT (RUE), hypertension, other (scleroderma) Past Surgical History: No surgical history Social history: full code. denies: smoking, alcohol abuse, prescription drug abuse, IV drug use Family history: no significant family history Medications and Allergies Allergies Allergy/AdvReac Type Severity Reaction Status Date / Time No Known Allergies Allergy Verified 06/01/15 17:48 Home Medications Medication Instructions Recorded Confirmed Last Taken Type Cyclobenzaprine HCl [Flexeril 5 MG 5 mg PO Q8HR #20 tablet 06/01/15 02/05/18 1 Month Ago Rx TAB] ~01/05/18 ALBUTEROL Inhaler [ProAir HFA 2 puff IH QID PRN #1 inhalation 02/06/18 Unknown Rx Inhaler] Apixaban [Eliquis] 5 mg PO BID #60 tablet 02/06/18 Unknown Rx Aspirin EC [Aspirin Enteric Coated 81 mg PO DAILY 02/06/18 02/06/18 3 Days Ago History TAB] ~02/03/18 Benzonatate [Tessalon Perle] 300 mg PO TID 02/06/18 02/06/18 3 Days Ago History ~02/03/18 Bumetanide (Nf) [Bumex 0.5mg tab] 1 mg PO BID #60 tablet 02/06/18 Unknown Rx Digoxin [Lanoxin] 125 mcg PO DAILY #30 tablet 02/06/18 Unknown Rx Famotidine [Pepcid] 20 mg PO TID 02/06/18 02/06/18 3 Days Ago History ~02/03/18 Lisinopril [Zestril TAB] 2.5 mg PO QDAY #30 tablet 02/06/18 Unknown Rx Metoprolol [Lopressor TAB] 50 mg PO BID #60 tablet 02/06/18 Unknown Rx Mycophenolate [Cellcept] 500 mg PO BID 02/06/18 02/06/18 3 Days Ago History ~02/03/18 Active Meds: Active Medications Albuterol (Proventil) 2.5 mg IH Q4H PRN PRN Reason: Shortness Of Breath Furosemide (Lasix) 20 mg IV 0600,1800 [facility] [place] Last Admin: 02/18/18 05:34 Dose: 20 mg Hydrophilic Ointment (Vaseline Lip Therapy) 1 applic TP DIRECT PRN PRN Reason: Dry Lips Last Admin: 02/17/18 19:03 Dose: 1 applic Sodium Chloride (Nacl 0.9% 1000 Ml) 1,000 mls @ 50 mls/hr IV DIRECT [facility] Last Admin: 02/17/18 15:01 Dose: 50 mls/hr Morphine Sulfate (Morphine) 2 mg IV Q4H PRN PRN Reason: Pain, Moderate (4-6) Last Admin: 02/17/18 17:59 Dose: 2 mg Ondansetron HCl (Zofran) 4 mg IV Q4H PRN PRN Reason: N/V IF NPO AND NO IV ACCESS Last Admin: 02/17/18 11:14 Dose: 4 mg Review of Systems Cardiovascular: no chest pain, no orthopnea, no palpitations, no rapid/ irregular heart beat, no edema, no syncope, no lightheadedness, no shortness of breath Gastrointestinal: abdominal pain, nausea, vomiting Physical Examination Vital Signs Temp Pulse Resp BP Pulse Ox 99.6 F 79 56 H 104/65 98 02/17/18 01:11 02/17/18 01:11 02/17/18 01:11 02/17/18 01:11 02/17/18 01:11 General appearance: no acute distress HEENT: Positive: PERRL Neck: Positive: neck supple Cardiac: Positive: irregularly irregular Lungs: Positive: Decreased Breath Sounds Neuro: Positive: Grossly Intact Abdomen: Positive: Distended Female genitourinary: deferred Skin: Positive: Clear Extremities: Absent: edema Results 02/17/18 01:37 02/17/18 01:37 EKG interpretations - Telemetry EKG Rhythm: Atrial Fibrillation Assessment and Plan - Patient Problems (1) Atrial fibrillation Current Visit: Yes Status: Acute Plan to address problem: The patient's cardiac history is notable for chronic atrial fibrillation. Atrial fibrillation was diagnosed in [facility] before she moved to the [facility] several years ago. She is on chronic oral anticoagulation therapy and rate control medications. Otherwise, there is no history of coronary artery disease, myocardial infarction, left ventricular systolic dysfunction or left-sided heart failure. A cardiac catheterization in June 2016 demonstrated angiographically normal coronary arteries. Left ventricular systolic function assessment including an echocardiogram performed just last month has consistently reported normal left ventricle systolic function, ejection fraction 55-60%. The major finding on the echocardiogram was evidence of cor pulmonale, with dilated right heart chambers and moderate pulmonary hypertension with pulmonary artery systolic pressure of 50 mmHg. Recommendations: We'll continue conservative medical management of the patient's chronic atrial fibrillation. Due to the bowel obstruction, she is unable to take oral anticoagulation or oral AV node blocking agents. Recommend subcutaneous Lovenox for DVT prophylaxis and anticoagulation until her routine Eliquis can be resumed. Intravenous digoxin for atrial fibrillation rate control. If surgery is eventually needed there are no cardiac contraindications.
[2018-02-18 11:50] LABS: BUN/Creatinine Ratio 30; Blood Urea Nitrogen 18 mg/dL (7-17); Calcium 9.4 mg/dL (8.4-10.2); Hemolysis Index 43
[2018-02-18] MEDS: LANOXIN IV SCH (12:00)
[2018-02-18] MEDS: LOVENOX SUB-Q SCH ×2 (12:00→22:08)
--- NOTE | 2018-02-18 12:26 | Progress Note ---
Assessment and Plan - Patient Problems (1) Partial small bowel obstruction Current Visit: Yes Status: Acute Plan to address problem: Pt stable. Abdominal symptoms have completely resolved. Small bowel follow- through did not reveal a specific location of narrowing. However, the need small bowel was dilated. Therefore, the issue may be somewhere in the distal small bowel. Ask her partial obstruction has resolved, hold off on any surgical intervention. She and I discussed a plan of starting her diet today. If there are no issues with lunch and dinner, the nursing staff is instructed to pull the NG tube tonight. Appreciate Cardiology consult. Primary team may resume Eliquis at any time. Time=20min Subjective Date of service: 02/18/18 Patient Reports: Positive: no new complaints, feels better, flatus, bowel movement (times 2), other (abd is back to normal size. pain has completely resolved. ) Objective Vital Signs - 12hr 02/18/18 02/18/18 06:00 07:52 Temperature 98.0 F 97.9 F Pulse Rate 90 98 H Respiratory 18 20 Rate Blood Pressure 112/72 Blood Pressure 108/70 [Left] O2 Sat by Pulse 99 87 Oximetry - General physical appearance no distress, no pain, other (looks much better) - Eyes normal occular movement - Respiratory normal expansion, normal respiratory effort - Abdomen soft, not tender, bowel sounds hypoactive, not distended, not guarding, not rigid - Integumentary no rash, no growths, no abnormal pigmentation - Psychiatric oriented to time, oriented to person, oriented to place, speech is normal, memory intact - Labs 02/17/18 01:37 02/18/18 11:06 Diabetes panel 02/18/18 Range/Units 11:06 Sodium 149 H D (137-145) mmol/L Potassium 4.5 (3.6-5.0) mmol/L Chloride 103.3 (98-107) mmol/L Carbon Dioxide 25 (22-30) mmol/L BUN 18 H (7-17) mg/dL Creatinine 0.6 L (0.7-1.2) mg/dL Glucose 66 (65-100) mg/dL Calcium 9.4 (8.4-10.2) mg/dL Calcium panel 02/18/18 Range/Units 11:06 Calcium 9.4 (8.4-10.2) mg/dL Pituitary panel 02/18/18 Range/Units 11:06 Sodium 149 H D (137-145) mmol/L Potassium 4.5 (3.6-5.0) mmol/L Chloride 103.3 (98-107) mmol/L Carbon Dioxide 25 (22-30) mmol/L BUN 18 H (7-17) mg/dL Creatinine 0.6 L (0.7-1.2) mg/dL Glucose 66 (65-100) mg/dL Calcium 9.4 (8.4-10.2) mg/dL Adrenal panel 02/18/18 Range/Units 11:06 Sodium 149 H D (137-145) mmol/L Potassium 4.5 (3.6-5.0) mmol/L Chloride 103.3 (98-107) mmol/L Carbon Dioxide 25 (22-30) mmol/L BUN 18 H (7-17) mg/dL Creatinine 0.6 L (0.7-1.2) mg/dL Glucose 66 (65-100) mg/dL Calcium 9.4 (8.4-10.2) mg/dL
--- NOTE | 2018-02-18 15:15 | Progress Note ---
Assessment and Plan Assessment and plan: 62-year-old -[place] female with past medical history significant for scleroderma, CHF, A. fib presented to the emergency department for complaints of abdominal pain, nausea, and vomiting. CT of the abdomen in the emergency Department showed the small bowel obstruction Intestinal obstruction -Surgery was consulted, and reviewed his note and the plan is to discontinue NG tube tonight and start her on clear liquid diet -Intestinal obstruction resolved CHF, cor pulmonale, pulmonary hypertension - Patient started on IV Lasix - Cardiology consulted and recommend SQ Lovenox for DVT prophylaxis and IV digoxin for CHF A. fib - Patient was on an aggressive outpatient - Subcutaneous lovenox until she started feeling DVT prophylaxis - SQ lovenox Disposition -possible DC tomorrow History Interval history: Patient was seen and evaluated this morning, patient's abdominal pain subsided, NG tube was in place. Hospitalist Physical - Physical exam Narrative exam: Not in cardiopulmonary distress. NG tube in place. The patient appeared well nourished and normally developed. Vital signs as documented. Head exam is unremarkable. No scleral icterus . Neck is without jugular venous distension, thyromegaly, or carotid bruits. Lungs are clear to auscultation. Cardiac exam reveals regular rate and Rhythm. First and second heart sounds normal. No murmurs, rubs or gallops. Abdominal exam reveals nontender, normoactive bowel sound. Extremities are nonedematous and both femoral and pedal pulses are normal. Integumentary: thickened skin. WOUND NURSE: Alert and oriented 3. No focal weakness. - Constitutional Vitals: Temp Pulse Resp BP Pulse Ox 97.9 F 98 H 20 112/72 87 02/18/18 07:52 02/18/18 07:52 02/18/18 07:52 02/18/18 07:52 02/18/18 07:52 General appearance: Present: no acute distress Results - Labs CBC & Chem 7: 02/17/18 01:37 02/18/18 11:06 Labs: Laboratory Last Values WBC 8.7 K/mm3 (4.5-11.0) 02/17/18 01:37 RBC 4.42 M/mm3 (3.65-5.03) 02/17/18 01:37 Hgb 11.6 gm/dl (10.1-14.3) 02/17/18 01:37 Hct 34.9 % (30.3-42.9) 02/17/18 01:37 MCV 79 fl (79-97) 02/17/18 01:37 MCH 26 pg (28-32) L 02/17/18 01:37 MCHC 33 % (30-34) 02/17/18 01:37 RDW 16.6 % (13.2-15.2) H 02/17/18 01:37 Plt Count 350 K/mm3 (140-440) 02/17/18 01:37 Lymph % (Auto) 15.1 % (13.4-35.0) 02/17/18 01:37 [place] % (Auto) 7.2 % (0.0-7.3) 02/17/18 01:37 Eos % (Auto) 0.3 % (0.0-4.3) 02/17/18 01:37 Baso % (Auto) 1.1 % (0.0-1.8) 02/17/18 01:37 Lymph # 1.3 K/mm3 (1.2-5.4) 02/17/18 01:37 [place] # 0.6 K/mm3 (0.0-0.8) 02/17/18 01:37 Eos # 0.0 K/mm3 (0.0-0.4) 02/17/18 01:37 Baso # 0.1 K/mm3 (0.0-0.1) 02/17/18 01:37 Seg Neutrophils % 76.3 % (40.0-70.0) H 02/17/18 01:37 Seg Neutrophils # 6.6 K/mm3 (1.8-7.7) 02/17/18 01:37 Sodium 149 mmol/L (137-145) H D 02/18/18 11:06 Potassium 4.5 mmol/L (3.6-5.0) 02/18/18 11:06 Chloride 103.3 mmol/L (98-107) 02/18/18 11:06 Carbon Dioxide 25 mmol/L (22-30) 02/18/18 11:06 Anion Gap 25 mmol/L 02/18/18 11:06 BUN 18 mg/dL (7-17) H 02/18/18 11:06 Creatinine 0.6 mg/dL (0.7-1.2) L 02/18/18 11:06 Estimated GFR > 60 ml/min 02/18/18 11:06 BUN/Creatinine Ratio 30 % 02/18/18 11:06 Glucose 66 mg/dL (65-100) 02/18/18 11:06 Calcium 9.4 mg/dL (8.4-10.2) 02/18/18 11:06 Total Bilirubin 0.60 mg/dL (0.1-1.2) 02/17/18 01:37 AST 34 units/L (5-40) 02/17/18 01:37 ALT 19 units/L (7-56) 02/17/18 01:37 Alkaline Phosphatase 70 units/L (35-129) 02/17/18 01:37 Total Protein 6.9 g/dL (6.3-8.2) 02/17/18 01:37 Albumin 3.8 g/dL (3.9-5) L 02/17/18 01:37 Albumin/Globulin Ratio 1.2 % 02/17/18 01:37 Lipase 28 units/L (13-60) 02/17/18 01:37 Urine Color Yellow (Yellow) 02/17/18 03:59 Urine Turbidity Clear (Clear) 02/17/18 03:59 Urine pH 5.0 (5.0-7.0) 02/17/18 03:59 Ur Specific [place] 1.015 (1.003-1.030) 02/17/18 03:59 Urine Protein 100 mg/dl mg/dL (Negative) 02/17/18 03:59 Urine Glucose (UA) Neg mg/dL (Negative) 02/17/18 03:59 Urine Ketones Tr mg/dL (Negative) 02/17/18 03:59 Urine Blood Neg (Negative) 02/17/18 03:59 Urine Nitrite Neg (Negative) 02/17/18 03:59 Urine Bilirubin Neg (Negative) 02/17/18 03:59 Urine Urobilinogen < 2.0 mg/dL (<2.0) 02/17/18 03:59 Ur Leukocyte Esterase Neg (Negative) 02/17/18 03:59 Urine WBC (Auto) 9.0 /HPF (0.0-6.0) H 02/17/18 03:59 Urine RBC (Auto) 7.0 /HPF (0.0-6.0) 02/17/18 03:59 Urine Bacteria (Auto) 1+ /HPF (Negative) 02/17/18 03:59 Ur Renal Epithelial Cell 4 /LPF 02/17/18 03:59 Hyaline Casts 86 /LPF 02/17/18 03:59 Urine Mucus 1+ /HPF 02/17/18 03:59
[2018-02-18] MEDS: MORPHINE IV PRN (22:07)
[2018-02-19] MEDS: MORPHINE IV PRN ×3 (04:35→18:13)
[2018-02-19] MEDS: LASIX IV SCH ×2 (07:06→18:13)
[2018-02-19 07:30] LABS: BUN/Creatinine Ratio 30; Blood Urea Nitrogen 15 mg/dL (7-17); Calcium 9.1 mg/dL (8.4-10.2); Hemolysis Index 122
[2018-02-19] MEDS: LOVENOX SUB-Q SCH (09:37)
[2018-02-19] MEDS: LANOXIN IV SCH (09:37)
--- NOTE | 2018-02-19 11:44 | Progress Note ---
Assessment and Plan Partial small bowel obstruction Chronic atrial fibrillation/flutter on eliquis, metoprolol and digoxin as an outpatient Hx of Scleroderma A cardiac catheterization in June 2016 demonstrated angiographically normal coronary arteries. An echocardiogram 01/2018 reports evidence of cor pulmonale, with dilated right heart chambers and moderate pulmonary hypertension with pulmonary artery systolic pressure of 50 mmHg. Normal left ventricle systolic function, ejection fraction 55-60%. Subjective Date of service: 02/19/18 Interval history: Patient has no complaints. She is tolerating clear liquid diet. Objective Vital Signs Temp Pulse Pulse Resp BP Pulse Ox 02/19/18 07:46 97.9 F 76 15 107/76 95 02/18/18 22:00 100 H 20 9 L 02/18/18 19:20 97.4 F L 105 H 20 107/71 97 02/18/18 16:28 97.9 F 95 H 20 99/72 98 - Physical Examination General: No Apparent Distress HEENT: Positive: PERRL Neck: Positive: neck supple Cardiac: Positive: irregularly irregular Lungs: Positive: Decreased Breath Sounds Neuro: Positive: Grossly Intact - Labs and Meds Comprehensive Metabolic Panel 02/18/18 02/19/18 Range/Units 11:06 06:45 Sodium 149 H D 139 D (137-145) mmol/L Potassium 4.5 4.5 (3.6-5.0) mmol/L Chloride 103.3 99.8 (98-107) mmol/L Carbon Dioxide 25 25 (22-30) mmol/L BUN 18 H 15 (7-17) mg/dL Creatinine 0.6 L 0.5 L (0.7-1.2) mg/dL Glucose 66 101 H (65-100) mg/dL Calcium 9.4 9.1 (8.4-10.2) mg/dL
--- NOTE | 2018-02-19 14:44 | Progress Note ---
Assessment and Plan Assessment and plan: Small bowel obstruction. -Status post NG tube placement which has been removed -Patient started on clear liquid, to be advanced as tolerated -Surgery following Cor pulmonale with dilated right heart chambers and moderate pulmonary hypertension per echo -Continue IV Lasix -Cardiology following Chronic atrial fibrillation -Rate fairly controlled -On oral digoxin and metoprolol -Home eliquis restarted -Cardiology following Disposition: Discharge patient when cleared by surgery 28 minutes spent coordinating care History Interval history: Patient seen and examined today. She admits to passing flatus. Hospitalist Physical - Constitutional Vitals: Temp Pulse Resp BP Pulse Ox 97.9 F 76 15 107/76 95 02/19/18 07:46 02/19/18 07:46 02/19/18 07:46 02/19/18 07:46 02/19/18 07:46 General appearance: Present: no acute distress - EENT Eyes: Present: PERRL, EOM intact ENT: hearing intact, clear oral mucosa - Neck Neck: Present: supple - Respiratory Respiratory effort: normal Respiratory: bilateral: CTA - Cardiovascular Rhythm: irregularly irregular Heart Sounds: Present: S1 & S2 - Extremities Extremities: No edema - Abdominal General gastrointestinal: soft, non-tender, hypoactive bowel sounds - Neurologic Neurologic: CNII-XII intact Results - Labs CBC & Chem 7: 02/17/18 01:37 02/19/18 06:45 Labs: Laboratory Last Values WBC 8.7 K/mm3 (4.5-11.0) 02/17/18 01:37 RBC 4.42 M/mm3 (3.65-5.03) 02/17/18 01:37 Hgb 11.6 gm/dl (10.1-14.3) 02/17/18 01:37 Hct 34.9 % (30.3-42.9) 02/17/18 01:37 MCV 79 fl (79-97) 02/17/18 01:37 MCH 26 pg (28-32) L 02/17/18 01:37 MCHC 33 % (30-34) 02/17/18 01:37 RDW 16.6 % (13.2-15.2) H 02/17/18 01:37 Plt Count 350 K/mm3 (140-440) 02/17/18 01:37 Lymph % (Auto) 15.1 % (13.4-35.0) 02/17/18 01:37 [place] % (Auto) 7.2 % (0.0-7.3) 02/17/18 01:37 Eos % (Auto) 0.3 % (0.0-4.3) 02/17/18 01:37 Baso % (Auto) 1.1 % (0.0-1.8) 02/17/18 01:37 Lymph # 1.3 K/mm3 (1.2-5.4) 02/17/18 01:37 [place] # 0.6 K/mm3 (0.0-0.8) 02/17/18 01:37 Eos # 0.0 K/mm3 (0.0-0.4) 02/17/18 01:37 Baso # 0.1 K/mm3 (0.0-0.1) 02/17/18 01:37 Seg Neutrophils % 76.3 % (40.0-70.0) H 02/17/18 01:37 Seg Neutrophils # 6.6 K/mm3 (1.8-7.7) 02/17/18 01:37 Sodium 139 mmol/L (137-145) D 02/19/18 06:45 Potassium 4.5 mmol/L (3.6-5.0) 02/19/18 06:45 Chloride 99.8 mmol/L (98-107) 02/19/18 06:45 Carbon Dioxide 25 mmol/L (22-30) 02/19/18 06:45 Anion Gap 19 mmol/L 02/19/18 06:45 BUN 15 mg/dL (7-17) 02/19/18 06:45 Creatinine 0.5 mg/dL (0.7-1.2) L 02/19/18 06:45 Estimated GFR > 60 ml/min 02/19/18 06:45 BUN/Creatinine Ratio 30 % 02/19/18 06:45 Glucose 101 mg/dL (65-100) H 02/19/18 06:45 Calcium 9.1 mg/dL (8.4-10.2) 02/19/18 06:45 Total Bilirubin 0.60 mg/dL (0.1-1.2) 02/17/18 01:37 AST 34 units/L (5-40) 02/17/18 01:37 ALT 19 units/L (7-56) 02/17/18 01:37 Alkaline Phosphatase 70 units/L (35-129) 02/17/18 01:37 Total Protein 6.9 g/dL (6.3-8.2) 02/17/18 01:37 Albumin 3.8 g/dL (3.9-5) L 02/17/18 01:37 Albumin/Globulin Ratio 1.2 % 02/17/18 01:37 Lipase 28 units/L (13-60) 02/17/18 01:37 Urine Color Yellow (Yellow) 02/17/18 03:59 Urine Turbidity Clear (Clear) 02/17/18 03:59 Urine pH 5.0 (5.0-7.0) 02/17/18 03:59 Ur Specific [place] 1.015 (1.003-1.030) 02/17/18 03:59 Urine Protein 100 mg/dl mg/dL (Negative) 02/17/18 03:59 Urine Glucose (UA) Neg mg/dL (Negative) 02/17/18 03:59 Urine Ketones Tr mg/dL (Negative) 02/17/18 03:59 Urine Blood Neg (Negative) 02/17/18 03:59 Urine Nitrite Neg (Negative) 02/17/18 03:59 Urine Bilirubin Neg (Negative) 02/17/18 03:59 Urine Urobilinogen < 2.0 mg/dL (<2.0) 02/17/18 03:59 Ur Leukocyte Esterase Neg (Negative) 02/17/18 03:59 Urine WBC (Auto) 9.0 /HPF (0.0-6.0) H 02/17/18 03:59 Urine RBC (Auto) 7.0 /HPF (0.0-6.0) 02/17/18 03:59 Urine Bacteria (Auto) 1+ /HPF (Negative) 02/17/18 03:59 Ur Renal Epithelial Cell 4 /LPF 02/17/18 03:59 Hyaline Casts 86 /LPF 02/17/18 03:59 Urine Mucus 1+ /HPF 02/17/18 03:59
--- NOTE | 2018-02-19 16:29 | Progress Note ---
Assessment and Plan - Patient Problems (1) Partial small bowel obstruction Current Visit: Yes Status: Acute Plan to address problem: Pt stable. Abdominal symptoms have completely resolved. Small bowel follow- through did not reveal a specific location of narrowing. However, the need small bowel was dilated. Therefore, the issue may be somewhere in the distal small bowel. Ask her partial obstruction has resolved, hold off on any surgical intervention. Has done well with clears. Advance to soft diet. Ok from my standpoint to d/c home. Appreciate Cardiology consult. Primary team may resume Eliquis at any time. Please call with questions. Time=10min Subjective Date of service: 02/19/18 Patient Reports: Positive: no new complaints, feels better, tolerating liquids well, flatus, bowel movement. Negative: nausea, vomiting Objective Vital Signs - 12hr 02/19/18 02/19/18 07:46 15:22 Temperature 97.9 F 98.0 F Pulse Rate 76 82 Respiratory 15 16 Rate Blood Pressure 107/76 124/73 O2 Sat by Pulse 95 91 Oximetry - General physical appearance no distress, no pain - Respiratory normal expansion, normal respiratory effort - Abdomen soft, not tender, distended (slightly?), not guarding, not rigid - Integumentary no rash, no growths, no abnormal pigmentation - Psychiatric oriented to time, oriented to person, oriented to place, speech is normal, memory intact - Labs 02/17/18 01:37 02/19/18 06:45 Diabetes panel 02/19/18 Range/Units 06:45 Sodium 139 D (137-145) mmol/L Potassium 4.5 (3.6-5.0) mmol/L Chloride 99.8 (98-107) mmol/L Carbon Dioxide 25 (22-30) mmol/L BUN 15 (7-17) mg/dL Creatinine 0.5 L (0.7-1.2) mg/dL Glucose 101 H (65-100) mg/dL Calcium 9.1 (8.4-10.2) mg/dL Calcium panel 02/19/18 Range/Units 06:45 Calcium 9.1 (8.4-10.2) mg/dL Pituitary panel 02/19/18 Range/Units 06:45 Sodium 139 D (137-145) mmol/L Potassium 4.5 (3.6-5.0) mmol/L Chloride 99.8 (98-107) mmol/L Carbon Dioxide 25 (22-30) mmol/L BUN 15 (7-17) mg/dL Creatinine 0.5 L (0.7-1.2) mg/dL Glucose 101 H (65-100) mg/dL Calcium 9.1 (8.4-10.2) mg/dL Adrenal panel 02/19/18 Range/Units 06:45 Sodium 139 D (137-145) mmol/L Potassium 4.5 (3.6-5.0) mmol/L Chloride 99.8 (98-107) mmol/L Carbon Dioxide 25 (22-30) mmol/L BUN 15 (7-17) mg/dL Creatinine 0.5 L (0.7-1.2) mg/dL Glucose 101 H (65-100) mg/dL Calcium 9.1 (8.4-10.2) mg/dL
[2018-02-19] MEDS: ELIQUIS PO SCH (23:26)
[2018-02-19] MEDS: LOPRESSOR PO SCH (23:26)
[2018-02-20] MEDS: VASELINE LIP THERAPY TP PRN (02:42)
[2018-02-20] MEDS ORDERED: MYLICON PO ONE (02:53)
[2018-02-20] MEDS: LASIX IV SCH (06:00)
[2018-02-20] MEDS: MORPHINE IV PRN (06:16)
--- NOTE | 2018-02-20 09:06 | Progress Note ---
Assessment and Plan - Patient Problems (1) Partial small bowel obstruction Current Visit: Yes Status: Acute Plan to address problem: Pt stable. Small bowel follow-through did not reveal a specific location of narrowing. However, the need small bowel was dilated. Therefore, the issue may be somewhere in the distal small bowel. As her partial obstruction has resolved, hold off on any surgical intervention. Advanced to soft diet. Ok from my standpoint to d/c home. I have instructed her to have small frequent meals at home. It is important that she stay well hydrated and have a high-fiber diet. She spoke with the dietitian yesterday. We discussed that if her symptoms progress in the future, she can follow up with me in the office. We will then discuss a plan for surgical intervention. Appreciate Cardiology consult. Primary team may resume Eliquis at any time. Please call with questions. Time=10min Subjective Date of service: 02/20/18 Patient Reports: Positive: feels better, tolerating a regular diet, other (had mild discomfort yesterday). Negative: nausea, vomiting Objective Vital Signs - 12hr 02/19/18 02/19/18 02/20/18 22:00 23:26 07:41 Temperature Pulse Rate 88 75 Respiratory 16 Rate Blood Pressure 111/76 111/71 Blood Pressure [Left] O2 Sat by Pulse 93 Oximetry 02/20/18 07:46 Temperature 98.2 F Pulse Rate 73 Respiratory 15 Rate Blood Pressure Blood Pressure 111/71 [Left] O2 Sat by Pulse 96 Oximetry - General physical appearance no distress, no pain, other (sitting at bedside having breakfast) - Respiratory normal expansion, normal respiratory effort - Neurologic normal coordination - Psychiatric oriented to time, oriented to person, oriented to place, speech is normal, memory intact - Labs 02/17/18 01:37 02/19/18 06:45
--- NOTE | 2018-02-20 09:42 | Progress Note ---
Assessment and Plan Partial small bowel obstruction Chronic atrial fibrillation/flutter on eliquis, metoprolol and digoxin as an outpatient Hx of Scleroderma A cardiac catheterization in June 2016 demonstrated angiographically normal coronary arteries. An echocardiogram 01/2018 reports evidence of cor pulmonale, with dilated right heart chambers and moderate pulmonary hypertension with pulmonary artery systolic pressure of 50 mmHg. Normal left ventricle systolic function, ejection fraction 55-60%. Continue rate controlling agents and oral anticoagulation for chronic atrial fibrillation. Stable cardiac [place]. Subjective Date of service: 02/20/18 Interval history: Patient complains of abdmonial pain. She has no cardiac complaints. Objective Vital Signs Temp Pulse Resp BP BP Pulse Ox 02/20/18 07:46 98.2 F 73 15 111/71 96 02/20/18 07:41 75 111/71 93 02/19/18 23:26 88 111/76 02/19/18 22:00 16 02/19/18 19:54 99.1 F 105 H 16 113/75 96 02/19/18 15:22 98.0 F 82 16 124/73 91 - Physical Examination General: No Apparent Distress HEENT: Positive: PERRL Cardiac: Positive: irregularly irregular Lungs: Positive: Decreased Breath Sounds Neuro: Positive: Grossly Intact
[2018-02-20] MEDS ORDERED: ZESTRIL PO SCH (10:00)
[2018-02-20] MEDS ORDERED: LANOXIN PO SCH (10:00)
[2018-02-20] MEDS ORDERED: HALFPRIN EC PO SCH (10:00)
[2018-02-20] MEDS: ELIQUIS PO SCH (10:18)
[2018-02-20] MEDS: LOPRESSOR PO SCH (10:21)
[2018-02-20] MEDS ORDERED: MORPHINE IV PRN (10:41)
--- NOTE | 2018-02-20 12:24 | Discharge Summary ---
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 Hospitalization Reason for admission: Small bowel obstruction Condition: Stable Disposition: DC-01 TO HOME OR SELFCARE Time spent for discharge: 31 minutes - Discharge Diagnoses (1) Anticoagulant long-term use Status: Acute (2) Atrial fibrillation Status: Acute (3) Partial small bowel obstruction Status: Acute (4) Scleroderma Status: Acute (5) Cardiomegaly Status: Acute (6) Chronic atrial flutter Status: Acute (7) Hx of deep venous thrombosis Status: Acute (8) Ileus Status: Acute Core Measure Documentation - Palliative Care Palliative Care/ Comfort Measures: Not Applicable - Core Measures Any of the following diagnoses?: none Exam - Physical Exam Narrative exam: Not in cardiopulmonary distress. NG tube in place. The patient appeared well nourished and normally developed. Vital signs as documented. Head exam is unremarkable. No scleral icterus . Neck is without jugular venous distension, thyromegaly, or carotid bruits. Lungs are clear to auscultation. Cardiac exam reveals regular rate and Rhythm. First and second heart sounds normal. No murmurs, rubs or gallops. Abdominal exam reveals nontender, normoactive bowel sound. Extremities are nonedematous and both femoral and pedal pulses are normal. Integumentary: thickened skin. SUPPORT SERVICES COORDINATOR: Alert and oriented 3. No focal weakness. - Constitutional Vitals: Temp Pulse Resp BP Pulse Ox 98.2 F 73 15 111/71 96 02/20/18 07:46 02/20/18 10:22 02/20/18 07:46 02/20/18 10:22 02/20/18 07:46 Plan Activity: no restrictions Weight Bearing Status: Full Weight Bearing Diet: advance as tolerated Additional Instructions: Follow uo @[facility] in 1-2 weeks Follow up with: PRIMARY CARE, [Primary Care Provider] - 3-5 Days Prescriptions: oxyCODONE /ACETAMINOPHEN [Percocet 5/325] 1 tab PO Q6HR PRN #12 tablet PRN Reason: Pain Polyethylene Glycol 3350 [Miralax 3350] 17 gm PO QDAY PRN #12 packet PRN Reason: Constipation
[2018-02-20 14:45] VITALS: BP 100/79
== END 2018-02-20 16:51 | disposition home or self-care (01) | DRG 389 ==
LOC: ED 00:48 → 3A 05:30
PROVIDERS: ADMIT Internal Medicine; ATTEND Internal Medicine
PROC: 0D9670Z Drainage of Stomach with Drainage Device, Via Natural or Artificial Opening (ICD-10-PCS; principal; 2018-02-17)
DX: K56.600 Partial intestinal obstruction, unspecified as to cause (principal); I48.92 Unspecified atrial flutter; K56.7 Ileus, unspecified; I48.2 Chronic atrial fibrillation; I50.9 Heart failure, unspecified; I27.81 Cor pulmonale (chronic); I27.29 Other secondary pulmonary hypertension; M34.9 Systemic sclerosis, unspecified; I11.0 Hypertensive heart disease with heart failure; Z79.899 Other long term (current) drug therapy; Z79.01 Long term (current) use of anticoagulants; Z79.51 Long term (current) use of inhaled steroids; I25.2 Old myocardial infarction; Z86.718 Personal history of other venous thrombosis and embolism; Z79.82 Long term (current) use of aspirin
CPT/HCPCS: 36415; 74018; 74177; 74250; 80048; 80053; 81001; 83690; 85025; 87086; 93005; 93010; 96374; 96375; 96376; J1160; J1170; J1650; J1940; J2270; J2405; J7030; Q9963; Q9967

== ENCOUNTER 2018-03-02 11:49 | Emergency (ER) | payer MEDICAID ==
[2018-03-02 13:14] LABS: Basophils % (Auto) 0.7 % (0.0-1.8); Eosinophils # (Auto) 0.1 K/mm3 (0.0-0.4); Eosinophils % (Auto) 1.3 % (0.0-4.3); Hematocrit 35.5 % (30.3-42.9); Hemoglobin 11.6 gm/dl (10.1-14.3); Lymphocytes % (Auto) 27.3 % (13.4-35.0); Mean Corpuscular HGB Conc 33 % (30-34); Mean Corpuscular Volume 79 fl (79-97); Monocytes # (Auto) 0.6 K/mm3 (0.0-0.8); Monocytes % (Auto) 8.7 % (0.0-7.3); Platelet Count 248 K/mm3 (140-440); Red Blood Count 4.49 M/mm3 (3.65-5.03); Red Cell Distribution Width 16.6 % (13.2-15.2)
[2018-03-02 13:25] LABS: INR 1.25 (0.87-1.13); Mean Corpuscular Hemoglobin 26 pg (28-32)
[2018-03-02 13:26] LABS: BUN/Creatinine Ratio 20; Blood Urea Nitrogen 10 mg/dL (7-17); Hemolysis Index 17; Partial Thromboplastin Time 37.8 Sec. (24.2-36.6)
--- NOTE | 2018-03-02 14:15 | Emergency Department Report ---
ED General Adult HPI - General Chief complaint: Extremity Injury, Upper Stated complaint: LEFT ARM PAIN Time Seen by Provider: 03/02/18 14:00 Source: patient Mode of arrival: Ambulatory Limitations: No Limitations - History of Present Illness Initial comments: Patient was seen recently at [facility] for a right upper extremity DVT and cellulitis she says 2 weeks ago she got discharged she is on Ellaquis course, now she is having left upper extremity pain she's worried about blood clot. She's also had dizzy spells she says is not really a spinning is more of a lightheadedness she is here for evaluation of intermittent dizzy spells and she is worried about a blood clot in the left arm , pt does take diuretic, orthostatic vs are neg but slightly dizzy w/ standing per pt, no cp no andres no stiff neck no ataxia no weakness or numbness, no visual or ocular c/o, no speech c/o -: days(s), unknown Severity scale (0 -10): 0 Consistency: intermittent Improves with: none Worsens with: none Associated Symptoms: denies other symptoms. denies: confusion, chest pain, cough, diaphoresis, fever/chills, headaches, loss of appetite, malaise, nausea/ vomiting, rash, seizure, shortness of breath, syncope, weakness - Related Data Home Medications Medication Instructions Recorded Confirmed Last Taken Aspirin EC [Aspirin Enteric Coated 81 mg PO DAILY 02/06/18 02/19/18 3 Days Ago TAB] ~02/03/18 Benzonatate [Tessalon Perle] 300 mg PO TID 02/06/18 02/19/18 3 Days Ago ~02/03/18 Famotidine [Pepcid] 20 mg PO TID 02/06/18 02/19/18 3 Days Ago ~02/03/18 Mycophenolate [Cellcept] 500 mg PO BID 02/06/18 02/19/18 3 Days Ago ~02/03/18 Previous Rx's Medication Instructions Recorded Last Taken Type Cyclobenzaprine HCl [Flexeril 5 MG 5 mg PO Q8HR #20 tablet 06/01/15 1 Month Ago Rx TAB] ~01/05/18 ALBUTEROL Inhaler [ProAir HFA 2 puff IH QID PRN #1 inhalation 02/06/18 Unknown Rx Inhaler] Apixaban [Eliquis] 5 mg PO BID #60 tablet 02/06/18 Unknown Rx Bumetanide (Nf) [Bumex 0.5mg tab] 1 mg PO BID #60 tablet 02/06/18 Unknown Rx Digoxin [Lanoxin] 125 mcg PO DAILY #30 tablet 02/06/18 Unknown Rx Lisinopril [Zestril TAB] 2.5 mg PO QDAY #30 tablet 02/06/18 Unknown Rx Metoprolol [Lopressor TAB] 50 mg PO BID #60 tablet 02/06/18 Unknown Rx Polyethylene Glycol 3350 [Miralax 17 gm PO QDAY PRN #12 packet 02/20/18 Unknown Rx 3350] oxyCODONE /ACETAMINOPHEN [Percocet 1 tab PO Q6HR PRN #12 tablet 02/20/18 Unknown Rx 5/325] Oxycodone HCl/Acetaminophen 1 each PO Q6HR PRN #30 tablet 03/02/18 Unknown Rx [Percocet 7.5/325 mg] Allergies Allergy/AdvReac Type Severity Reaction Status Date / Time No Known Allergies Allergy Verified 06/01/15 17:48 ED Review of Systems ROS: Stated complaint: LEFT ARM PAIN Other details as noted in HPI Comment: All other systems reviewed and negative Constitutional: denies: diaphoresis, fever, malaise Eyes: denies: eye discharge, vision change ENT: denies: dental pain, hearing loss, epistaxis Respiratory: denies: cough, orthopnea, shortness of breath, SOB with exertion, SOB at rest, stridor, wheezing Cardiovascular: denies: chest pain, palpitations, dyspnea on exertion, orthopnea , edema, syncope, paroxysmal nocturnal dyspnea Endocrine: denies: excessive sweating, flushing, intolerance to cold, intolerance to heat Gastrointestinal: denies: abdominal pain, nausea, vomiting, diarrhea, constipation, hematemesis, melena, hematochezia Neurological: denies: headache, weakness, numbness, paresthesias, confusion, abnormal gait, vertigo Psychiatric: anxiety. denies: depression, auditory hallucinations, visual hallucinations, homicidal thoughts, suicidal thoughts ED Past Medical Hx - Past Medical History Previous Medical History?: Yes Hx Heart Attack/AMI: Yes Hx Congestive Heart Failure: Yes Hx Asthma: No Additional medical history: dvt, clot in rt arm. Scleroderma. A. fib/flutter - Surgical History Past Surgical History?: No - Social History Smoking Status: Never Smoker Substance Use Type: Prescribed - Medications Home Medications: Home Medications Medication Instructions Recorded Confirmed Last Taken Type Cyclobenzaprine HCl [Flexeril 5 MG 5 mg PO Q8HR #20 tablet 06/01/15 02/19/18 1 Month Ago Rx TAB] ~01/05/18 ALBUTEROL Inhaler [ProAir HFA 2 puff IH QID PRN #1 inhalation 02/06/18 02/19/18 Unknown Rx Inhaler] Apixaban [Eliquis] 5 mg PO BID #60 tablet 02/06/18 02/19/18 Unknown Rx Aspirin EC [Aspirin Enteric Coated 81 mg PO DAILY 02/06/18 02/19/18 3 Days Ago History TAB] ~02/03/18 Benzonatate [Tessalon Perle] 300 mg PO TID 02/06/18 02/19/18 3 Days Ago History ~02/03/18 Bumetanide (Nf) [Bumex 0.5mg tab] 1 mg PO BID #60 tablet 02/06/18 02/19/18 Unknown Rx Digoxin [Lanoxin] 125 mcg PO DAILY #30 tablet 02/06/18 02/19/18 Unknown Rx Famotidine [Pepcid] 20 mg PO TID 02/06/18 02/19/18 3 Days Ago History ~02/03/18 Lisinopril [Zestril TAB] 2.5 mg PO QDAY #30 tablet 02/06/18 02/19/18 Unknown Rx Metoprolol [Lopressor TAB] 50 mg PO BID #60 tablet 02/06/18 02/19/18 Unknown Rx Mycophenolate [Cellcept] 500 mg PO BID 02/06/18 02/19/18 3 Days Ago History ~02/03/18 Polyethylene Glycol 3350 [Miralax 17 gm PO QDAY PRN #12 packet 02/20/18 Unknown Rx 3350] oxyCODONE /ACETAMINOPHEN [Percocet 1 tab PO Q6HR PRN #12 tablet 02/20/18 Unknown Rx 5/325] Oxycodone HCl/Acetaminophen 1 each PO Q6HR PRN #30 tablet 03/02/18 Unknown Rx [Percocet 7.5/325 mg] ED Physical Exam - General Limitations: No Limitations General appearance: alert, in no apparent distress, anxious - Head Head exam: Present: atraumatic, normocephalic - Eye Eye exam: Present: normal appearance, PERRL, EOMI - ENT ENT exam: Present: normal exam, normal orophraynx - Neck Neck exam: Present: normal inspection. Absent: tenderness, meningismus - Respiratory Respiratory exam: Present: normal lung sounds bilaterally. Absent: respiratory distress, wheezes, rales, rhonchi, stridor, accessory muscle use - Cardiovascular Cardiovascular Exam: Present: regular rate, normal rhythm, normal heart sounds - GI/Abdominal GI/Abdominal exam: Present: soft. Absent: distended, tenderness, guarding, rebound, mass, pulsatile mass - Extremities Exam Extremities exam: Present: normal inspection, normal capillary refill. Absent: pedal edema, joint swelling, calf tenderness - Back Exam Back exam: Present: normal inspection. Absent: tenderness, CVA tenderness (R), CVA tenderness (L), muscle spasm, paraspinal tenderness - Neurological Exam Neurological exam: Present: alert, oriented X3, CN II-XII intact, other (no cerebellar findings). Absent: motor sensory deficit - Psychiatric Psychiatric exam: Present: anxious, flat affect. Absent: depressed, agitated, homicidal ideation, suicidal ideation - Skin Skin exam: Absent: cyanosis, diaphoretic, erythema, urticaria, vesicles, petechiae ED Course Vital Signs 03/02/18 03/02/18 11:54 14:46 Temperature 98.6 F Pulse Rate 105 H 103 H Respiratory 22 20 Rate Blood Pressure 106/65 Blood Pressure 102/67 [Left] O2 Sat by Pulse 92 95 Oximetry ED Medical Decision Making - Lab Data Result diagrams: 03/02/18 13:06 03/02/18 14:52 - EKG Data -: EKG Interpreted by Ak EKG shows normal: sinus rhythm - EKG Data Interpretation: other (no acute ischemic changes) - Radiology Data Radiology results: report reviewed - Medical Decision Making us on dvt, given dizzy spells , dr saez was asked to eval pt in ed, he felt neg head ct and no cereblellar findings, nonspecific dizzy worse w/ standing, neg labs , likely related to diuretic therapy, he did eval in ed for admit and felt pt could be d/c to change bumex dosage and dizzy spells likely related to orthostatsis, pt had nl gait no forcl neuro findings, neg head ct, neg cardiac eval w/o evidence of acs at this time, bp and pulses =b and repeat vss and therefor stable oupt f/u, dr saez completed eval and d/c after eval for admit and felt pt stable for outp /fu Critical care attestation.: If time is entered above; I have spent that time in minutes in the direct care of this critically ill patient, excluding procedure time. ED Disposition Clinical Impression: Orthostatic dizziness, Medication side effect Disposition: TO HOME OR SELFCARE Is pt being admited?: No Condition: Stable Instructions: Near Syncope (ED), Dizziness (ED) Prescriptions: Oxycodone HCl/Acetaminophen [Percocet 7.5/325 mg] 1 each PO Q6HR PRN #30 tablet PRN Reason: Pain Referrals: PRIMARY CARE, [Primary Care Provider] - 3-5 Days Time of Disposition: 21:56
[2018-03-02 14:24] LABS: Chol/HDL Ratio 2.14 %; HDL Cholesterol 61 mg/dL (40-59); LDL Cholesterol,Direct 59 mg/dL (50-130)
[2018-03-02 14:46] VITALS: BP 102/67
[2018-03-02 15:31] LABS: Alanine Aminotransferase 11 units/L (7-56); Albumin 3.9 g/dL (3.9-5); BUN/Creatinine Ratio 20; Blood Urea Nitrogen 10 mg/dL (7-17); Calcium 9.2 mg/dL (8.4-10.2); Hemolysis Index 4
--- NOTE | 2018-03-02 15:39 | Cat Scan Report ---
FINAL REPORT EXAM: CT HEAD/BRAIN WO CON HISTORY: Weakness on lt side TECHNIQUE: CT of the head was performed. No intravenous contrast was administered. PRIORS: None. FINDINGS: There is no evidence of intracranial hemorrhage. There is no edema, mass effect or midline shift. There are no abnormal extra-axial fluid collections. The ventricles are appropriate for brain volume. There is no skull fracture seen. The visualized aspects of the sinuses are clear. IMPRESSION: There is no acute intracranial abnormality identified.
--- NOTE | 2018-03-02 16:09 | Event Note ---
Date: 03/02/18 Patient evaluated for Dizziness She had complete w/u including Sress test and CTA Negative Dizziness---Orthostatic D/c Home F/u with pcp Dr Collier [phone]
--- NOTE | 2018-03-02 16:13 | Event Note ---
Date: 03/02/18 Date: 03/02/18 Patient evaluated for Dizziness She had complete w/u including Sress test and CTA Negative Dizziness---Orthostatic D/c Home F/u with pcp Dr Collier [phone]
[2018-03-02] MEDS ORDERED: K-DUR PO ONE (16:27)
== END 2018-03-02 17:22 | disposition home or self-care (01) ==
LOC: ED 11:49
DX: T50.995A Adverse effect of other drugs, medicaments and biological substances, initial encounter (principal); R42 Dizziness and giddiness; Y92.89 Other specified places as the place of occurrence of the external cause
CPT/HCPCS: 36415; 70450; 80048; 80053; 80061; 80162; 84484; 85025; 85610; 85670; 85730; 93005; 93010